=== PATIENT | female | born 1940 | race Caucasian/White ===

== ENCOUNTER 2019-04-28 02:55 | Day surgery (SDC) | payer MEDICARE, SELFPAY ==
[2019-04-22 12:38] VITALS: BMI 31.0
--- NOTE | 2019-04-27 17:14 | WPDANESEPP ---
Anes - Eval Pre Procedure Procedure: Operation Date: 04/28/19 08:00 Proposed Procedures p Colonoscopy - Wilder Santillan MD Date/Time: 04/27/19 17:14 Pre Op Diagnosis: Change In Bowel Habits Patient Data Age: 78 Gender: F Height: 5 ft 2 in Weight: 77 kg Allergies Allergy/AdvReac Type Severity Reaction Status Date / Time adhesive Allergy Mild RASH Verified 04/22/19 12:38 Penicillins Allergy Unknown Verified 04/22/19 12:38 Sulfa (Sulfonamide Allergy Unknown Verified 04/22/19 12:38 Antibiotics) Home Medications Medication Instructions Recorded Confirmed Type CoQ-10 04/22/19 History alprazolam 0.25 mg PO BID PRN 04/22/19 04/22/19 History amitriptyline 25 mg PO DAILY 04/22/19 04/22/19 History apixaban [Eliquis] 5 mg PO BID 04/22/19 04/22/19 History esomeprazole magnesium 40 mg PO DAILY 04/22/19 04/22/19 History levothyroxine 50 mcg PO DAILY 04/22/19 04/22/19 History trospium 20 mg PO BID 04/22/19 04/22/19 History Patient hx anesthesia problems: post op nausea/vomiting Family hx anesthesia problems: none PMFSH Past Medical History Medical History Anxiety Arthritis Cervical vertebral fusion Constipation DVT (deep venous thrombosis) Hypothyroidism Social History Social History Smoking status: Never smoker Exam Day of Procedure 04/27/19 17:14
[2019-04-28] MEDS: LACTATED RINGERS 1,000 ML 150 ML IV CONT (06:55)
[2019-04-28 07:01] VITALS: BP 179/91; PULSE 99; RESP 16; TEMP 36.4; O2SAT 98
--- NOTE | 2019-04-28 07:23 | WPDANESEPPF ---
Anes - Initial Pre Proc Eval Procedure: Operation Date: 04/28/19 08:00 Proposed Procedures p Colonoscopy - Wilder Santillan MD Date/Time: 04/28/19 07:23 Surgeon: Wilder Santillan MD Pre Op Diagnosis: Change In Bowel Habits Patient Data Age: 78 Gender: F Height: 1.57 m Weight: 76.1 kg Last Vital Signs Temp 36.4 C 04/28/19 07:01 Pulse 99 04/28/19 07:01 Resp 16 04/28/19 07:01 BP 179/91 H 04/28/19 07:01 Pulse Ox 98 04/28/19 07:01 Allergies Allergy/AdvReac Type Severity Reaction Status Date / Time adhesive Allergy Mild RASH Verified 04/28/19 07:00 Penicillins Allergy Unknown Verified 04/28/19 07:00 Sulfa (Sulfonamide Allergy Unknown Verified 04/28/19 07:00 Antibiotics) Home Medications Medication Instructions Recorded Confirmed Type CoQ-10 04/22/19 History alprazolam 0.25 mg PO BID PRN 04/22/19 04/22/19 History amitriptyline 25 mg PO DAILY 04/22/19 04/22/19 History apixaban [Eliquis] 5 mg PO BID 04/22/19 04/22/19 History esomeprazole magnesium 40 mg PO DAILY 04/22/19 04/22/19 History levothyroxine 50 mcg PO DAILY 04/22/19 04/22/19 History trospium 20 mg PO BID 04/22/19 04/22/19 History Patient hx anesthesia problems: post op nausea/vomiting Family hx anesthesia problems: none PMFSH Past Medical History Medical History (Updated 04/28/19 @ 07:24 by Derrek Arango MD) Anxiety Arthritis Cervical vertebral fusion Constipation DVT (deep venous thrombosis) Hypothyroidism Obesity Social History Social History Smoking status: Never smoker Anes - Eval Final PreProcedure Day of Procedure 04/28/19 07:23 Patient weight: obese Heart: regular rate and rhythm Lungs: clear to auscultation and normal air movement Airway: Mallampati scale class II Neurological: alert and oriented Last oral intake: >/= 8 hours ASA classification: III Emergent: no Anesthetic plan: proceed Anesthesia type and monitoring: general GIVS Informed Consent: The patient's anesthetic plan and its attendant risks and benefits were discussed with the patient/family/POA. Questions were solicited and answers provided to the satisfaction of the patient/family/POA.
[2019-04-28] MEDS: ONDANSETRON INJ 4 MG/2 ML VIAL IV PUSH (07:32)
--- NOTE | 2019-04-28 07:58 | WPDGICN ---
Assessment and Plan Additional Plan This is a 78-year-old white female patient seen in evaluation at the request of Dr. Zamarripa. Patient has complaints of change in bowel habits. She has had increasing constipation since February of 2019. She was treated empirically for diverticulitis by primary care service. No change in bowel habits was identified. She denies any bleeding. She denies any weight loss. Current medications include FiberCon, [place] Mary, MiraLax. Prunes. Family history is noncontributory. Past medical history is significant for a history of DVT. She is on chronic Eliquis anticoagulation. Current medications include Eliquis now on hold. Synthroid. Nexium. Alprazolam. Flonase. Zyrtec. Probiotics. Amitriptyline. His allergy to penicillin and sulfa. Physical exam reveals her to be alert. Vital signs stable. HEENT exam unremarkable. Lungs are clear to auscultation and percussion. Heart is without murmur or extra sounds. Abdominal exam bowel sounds are present soft nontender with no hepatosplenomegaly. Digital external rectal exam normal. Impression 1. Change in bowel habits. 2. Constipation. 3. Eliquis anticoagulation. 4. History of DVT. Plan is to continue MiraLax daily. Magnesium citrate may be of some benefit intermittently for severe constipation. Colonoscopy will be arranged to further exclude colon disease. Further recommendations will be given after endoscopy. GI Consult Note Consult date/time: 04/28/19 07:58 HPI: Marilyn Plascencia is a 78 year old female [facility] Past Medical History Medical History (Updated 04/28/19 @ 07:24 by Derrek Arango MD) Anxiety Arthritis Cervical vertebral fusion Constipation DVT (deep venous thrombosis) Hypothyroidism Obesity Social History Social History Smoking status: Never smoker Meds Home Medications and Allergies Home Medications Medication Instructions Recorded Confirmed Type CoQ-10 04/22/19 History alprazolam 0.25 mg PO BID PRN 04/22/19 04/22/19 History amitriptyline 25 mg PO DAILY 04/22/19 04/22/19 History apixaban [Eliquis] 5 mg PO BID 04/22/19 04/22/19 History esomeprazole magnesium 40 mg PO DAILY 04/22/19 04/22/19 History levothyroxine 50 mcg PO DAILY 04/22/19 04/22/19 History trospium 20 mg PO BID 04/22/19 04/22/19 History Allergies Allergy/AdvReac Type Severity Reaction Status Date / Time adhesive Allergy Mild RASH Verified 04/28/19 07:00 Penicillins Allergy Unknown Verified 04/28/19 07:00 Sulfa (Sulfonamide Allergy Unknown Verified 04/28/19 07:00 Antibiotics) Vital Signs Vital Signs - 24 hr 04/28/19 07:01 Temperature 36.4 C Pulse Rate 99 Respiratory Rate 16 Blood Pressure 179/91 H Pulse Oximetry 98
[2019-04-28 08:25] VITALS: BP 113/71; PULSE 90; RESP 19; O2SAT 96
[2019-04-28 08:35] VITALS: BP 139/79; PULSE 81; RESP 23; O2SAT 96
[2019-04-28 08:47] VITALS: BP 159/94; PULSE 82; RESP 23; O2SAT 97
== END 2019-04-28 08:58 | disposition home or self-care (01) ==
PROVIDERS: PCP Family Medicine; Visit Provider Internal Medicine Gastroenterology
PROC: 0DJD8ZZ Inspection of Lower Intestinal Tract, Via Natural or Artificial Opening Endoscopic (ICD-10-PCS; CPT 45378; principal; 2019-04-28 08:00)
DX: Z12.11 Encounter for screening for malignant neoplasm of colon (principal); K59.00 Constipation, unspecified; D12.2 Benign neoplasm of ascending colon; K57.30 Diverticulosis of large intestine without perforation or abscess without bleeding; K64.8 Other hemorrhoids; E03.9 Hypothyroidism, unspecified; F41.9 Anxiety disorder, unspecified; M19.90 Unspecified osteoarthritis, unspecified site; Z86.718 Personal history of other venous thrombosis and embolism; Z79.01 Long term (current) use of anticoagulants; Z98.1 Arthrodesis status; E66.9 Obesity, unspecified; Z68.30 Body mass index [BMI] 30.0-30.9, adult
CPT/HCPCS: 45385; 88305; J2001; J2405; J2704; J7120

== ENCOUNTER 2019-06-14 13:24 | Outpatient (CLI) | payer MEDICARE, SELFPAY ==
--- NOTE | ~2019-06-14 | CT_ITS ---
EXAMINATION: CT abdomen pelvis wo/w con DATE: 06/14/2019 14:46 INDICATION: Microscopic hematuria TECHNIQUE: Computed tomography (CT) of the abdomen and pelvis was performed without and with 130 cc O mnipaque 350 intravenous contrast. The dose-length product was 1532.84 mGy-cm. Automated exposure con trol and iterative reconstruction technique were employed. COMPARISON: CT dated 04/21/2018 FINDINGS: Lung bases are unremarkable. Cardiomegaly. No significant pleural or pericardial effusion. Colonic diverticulosis without evidence for diverticulosis. No lymphadenopathy. There are punctate 1- 2 mm nonobstructing lower pole right renal stones. There are renal cysts, largest in the right kidney measuring 2.1 cm. Gallbladder is present. No free air or free fluid. No abnormal pelvic masses or fl uid collections. Uterus is surgically absent. Colonic diverticulosis without evidence for diverticuli tis. IMPRESSION: 1. Punctate nonobstructing right nephrolithiasis. Reviewed, dictated and finalized at location A.
--- NOTE | ~2019-06-14 | XR_ITS ---
XR abdomen/kub 1V 06/14/2019 14:13 Indication: Microhematuria Procedure: KUB Comparison: 04/21/2018 Findings: Bowel gas pattern is nonobstructive. There are radiodensities in the left upper abdomen, po ssibly bowel content. Possible punctate stones in the lower pole of the right kidney. Mild lumbar spo ndylosis with dextroscoliosis. No acute osseous abnormality. Impression: 1: Possible punctate right nephrolithiasis. Reviewed, dictated and finalized at location A. Impression: 1: Possible punctate right nephrolithiasis.
[2019-06-14 14:22] LABS: Estimated Glomerular Filt Rate > 60
== END 2019-06-14 13:25 | disposition home or self-care (01) ==
PROVIDERS: PCP Family Medicine; Visit Provider Nurse Practitioner Adult Health
DX: R31.29 Other microscopic hematuria (principal); N20.0 Calculus of kidney
CPT/HCPCS: 36415; 74018; 74178; Q9967

== ENCOUNTER 2019-10-14 07:21 | Outpatient (CLI) | payer MEDICARE, SELFPAY ==
--- NOTE | ~2019-10-14 | US_ITS ---
US venous doppler [facility] DATE: 10/14/2019 08:17 INDICATION: Chronic deep venous thrombosis, on Eliquis therapy TECHNIQUE: Real-time and color flow imaging and Doppler analysis of the veins of the lower extremitie s COMPARISON: 07/28/2018 venous duplex examination of the lower extremities FINDINGS: The right greater saphenous vein is patent. There is spontaneous and phasic flow of the rig ht common femoral and deep femoral veins. There is thrombus identified within the right femoral vein with incomplete compression proximal and m id right femoral vein. There is occlusion of the distal femoral vein by thrombus, with no compression . There is incomplete compression of the distal popliteal vein on the right. Thrombus is identified within one of the paired right peroneal veins. The posterior tibial veins are patent on the right. The left greater saphenous vein is patent. There is chronic partial thrombosis of the left popliteal vein distally with incomplete compression, as noted on the 07/28/2018 venous duplex examination of the lower extremities. Since. Otherwise the becca p veins of the left lower extremity are patent, with spontaneous flow and normal augmentation and col or flow signal, normal compression. 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 Reviewed, dictated and finalized at location B. 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
== END 2019-10-14 07:22 | disposition home or self-care (01) ==
LOC: ANHIMG 07:25
PROVIDERS: PCP Family Medicine; Visit Provider Family Medicine
DX: I82.503 Chronic embolism and thrombosis of unspecified deep veins of lower extremity, bilateral (principal); I82.411 Acute embolism and thrombosis of right femoral vein; I82.431 Acute embolism and thrombosis of right popliteal vein
CPT/HCPCS: 93970

== ENCOUNTER 2019-11-26 16:05 | Outpatient (CLI) | payer MEDICARE, SELFPAY | END 2019-11-26 16:06 | disposition home or self-care (01) | PROVIDERS: PCP Family Medicine; Visit Provider Family Medicine | DX: A23.9 Brucellosis, unspecified (principal) | CPT/HCPCS: 36415; 86622 ==

== ENCOUNTER → 2019-12-10 11:32 | Outpatient (CLI) | payer MEDICARE, SELFPAY ==
--- NOTE | ~2019-12-10 | MM_ITS ---
EXAMINATION: MM screening arturo BI w jonas HISTORY: Screening mammogram TECHNIQUE: Craniocaudal and mediolateral oblique 3-D tomosynthesis images were obtained and synthetic 2-D images were generated. CAD analysis was submitted and interpreted. COMPARISON: 08/14/2018, 08/07/2017, 07/24/2016 bilateral digital screening mammogram examinations BREAST PARENCHYMAL COMPOSITION: The breasts are almost entirely fatty. FINDINGS: There is no evidence of suspicious mass, calcification, or architectural distortion to sugg est malignancy in either breast. There has been no suspicious interval change. IMPRESSION: 1. No mammographic evidence of malignancy. 2. Recommend routine screening mammography in one year. BI-RADS Category 1: Negative Reviewed, dictated and finalized at location A.
== END ==
PROVIDERS: PCP Family Medicine; Visit Provider Nurse Practitioner Obstetrics & Gynecology
DX: Z12.31 Encounter for screening mammogram for malignant neoplasm of breast (principal)
CPT/HCPCS: 77063; 77067

== ENCOUNTER 2019-12-21 09:30 | Emergency (ER) | payer MEDICARE, SELFPAY ==
[2019-12-21] VITALS (9 sets, daily range): BP systolic 132–175; BP diastolic 73–95; PULSE 66–81; RESP 14–21; TEMP 36.1; O2SAT 96–99
--- NOTE | ~2019-12-21 | XR_ITS ---
EXAMINATION: XR chest 2V EXAM DATE: 12/21/2019 10:12 INDICATION: Chest heaviness, started after taking the medication. TECHNIQUE: Frontal and lateral projections of the chest obtained and reviewed. Comparison is made to prior examination from 07/11/2014. FINDINGS: The lungs are clear. There are no pleural effusions. The cardiomediastinal silhouette is within normal limits. There is no pneumothorax suspected. The bones and soft tissues are unremarkab le. IMPRESSION: No acute cardiopulmonary findings. Reviewed, dictated and finalized at location A.
--- NOTE | 2019-12-21 09:48 | ECG_ITS ---
Measurements Intervals [place] Rate: 80 P: 15 IA: 156 QRS: -13 QRSD: 105 T: -16 QT: 289 QTc: 334 Interpretive Statements SINUS RHYTHM DELAYED PRECORDIAL R/S TRANSITION VOLTAGE CRITERIA FOR LVH INFERIOR INFARCT, AGE INDETERMINATE BASELINE ARTIFACT- I, II, III, AVR ABNORMAL ECG Electronically Signed On 12-21-2019 10:31:33 CDT by Kamlesh Yap D.O.
[2019-12-21 10:39] LABS: Basophils Absolute Auto 0.1 K/mm3 (0.0-0.1); Basophils Percent Auto 0.8 % (0.2-1.2); Eosinophils Absolute Auto 0.1 K/mm3 (0-0.3); Eosinophils Percent Auto 1.9 % (0-4.4); Hematocrit 44.5 % (37.0-47.0); Immature Granulocyte Absolute 0.01 K/mm3 (0.00-0.031); Immature Granulocyte Percent A 0.1 % (0-0.5); Lymphocytes Absolute Auto 3.28 K/mm3 (0.9-3.2); Lymphocytes Percent Auto 43.4 % (18.3-44.2); Mean Corpuscular HGB Conc 33.7 g/dl (32-36); Mean Corpuscular Hemoglobin 31.1 pg (26-34); Mean Corpuscular Volume 92.1 fl (80-100); Mean Platelet Volume 11.7 fl (7.4-10.4); Monocytes Absolute Auto 0.7 K/mm3 (0.1-0.6); Monocytes Percent Auto 9.5 % (2.6-8.5); Neutrophils Absolute Auto 3.4 K/mm3 (1.3-6.7); Neutrophils Percent Auto 44.3 % (45.5-73.1); Platelet Count Result 157 k/mm3 (150-375); Red Blood Count 4.83 M/mm3 (4.2-5.4); Red Cell Distribution Width 12.4 % (11.5-14.5); White Blood Count 7.6 K/mm3 (4.5-10.0)
[2019-12-21 10:48] LABS: INR 1.2; Prothrombin Time 14.4 Seconds (11.1-14.7)
[2019-12-21 10:49] LABS: Partial Thromboplastin Time 30.6 SECONDS (22.3-36.8)
--- NOTE | 2019-12-21 10:58 | PC.NURSE ---
Trop baseline unreceived at 10:50, redrawn at 10:55 and sent to lab
[2019-12-21 11:17] LABS: Anion Gap 7 mmol/L (8-16); Blood Urea Nitrogen 13 mg/dL (7-17); Calcium 9.2 mg/dL (8.4-10.2); Carbon Dioxide 31 mmol/L (22-30); Chloride 106 mmol/L (98-107); Estimated CRCL calculation 47 ml/min; Estimated Glomerular Filt Rate > 60; Glucose 99 mg/dL (65-105); Sodium 144 mmol/L (137-145)
[2019-12-21 11:28] LABS: Troponin I < 0.012 ng/mL (0.000-0.034)
--- NOTE | 2019-12-21 11:54 | ED.GENADULT ---
HPI - General Adult General Chief complaint: Chest Pain Stated complaint: allergic reaction Time Seen by Provider: 12/21/19 10:03 Source: patient and family Mode of arrival: ambulatory Limitations: no limitations History of Present Illness HPI narrative: Patient is a 79-year-old female who presents with chest heaviness that began last night at 11 and resolved after going to sleep patient notes that it began a few hours after taking an antibiotic she was prescribed for urinary tract infection patient took 1 pill and experienced onset of symptoms patient on arrival notes no current chest pain discomfort. Patient denies similar occurrence in the past Related Data Home Medications Medication Instructions Recorded Confirmed CoQ-10 04/22/19 alprazolam 0.25 mg PO BID PRN 04/22/19 04/22/19 apixaban [Eliquis] 5 mg PO BID 04/22/19 04/22/19 esomeprazole magnesium 40 mg PO DAILY 04/22/19 04/22/19 levothyroxine 50 mcg PO DAILY 04/22/19 04/22/19 Acidophilus 12/21/19 Caltrate 600 plus D 12/21/19 Centrum Silver 12/21/19 Metamucil 12/21/19 Miralax 12/21/19 Ocuvite with Lutein 12/21/19 Probiotic 12/21/19 Refresh Tears 12/21/19 Vitamin C 12/21/19 Zyrtec 12/21/19 biotin 12/21/19 choline bitartrate 12/21/19 magnesium 12/21/19 solifenacin [Vesicare] mg PO 12/21/19 Allergies Allergy/AdvReac Type Severity Reaction Status Date / Time adhesive Allergy Mild RASH Verified 12/21/19 09:52 Penicillins Allergy Unknown Rash Verified 12/21/19 09:52 Sulfa (Sulfonamide Allergy Unknown Rash Verified 12/21/19 09:52 Antibiotics) Review of Systems Review of Systems: All systems reviewed & are unremarkable except as noted in HPI and below PMFSH Past Medical History Medical History Anxiety Arthritis Cervical vertebral fusion Constipation DVT (deep venous thrombosis) Hypothyroidism Obesity Social History Social History Smoking status: Never smoker Gender identity (if verbalized by the patient): Female Exam Narrative: Exam Narrative: GENERAL: Well-appearing, well-nourished, and in no acute distress. HEAD: Normocephalic, atraumatic. EYES: PERRLA and EOMI. ENT: Nares clear, no rhinorrhea or epistaxis. Mucous membranes moist. CHEST: Clear to auscultation. No respiratory distress. No wheezes rales or rhonchi HEART: Regular rate and rhythm. No murmur heard. Normal peripheral pulses. ABDOMEN: Soft, nontender, nondistended, normal active bowel sounds. EXTREMITIES: Normal range of motion. No edema. SKIN: Warm, dry, no rash. NEURO: No focal deficits. Alert and oriented x3. PSYCH: Normal mood and affect. Course Course Emergency Course: Patient in the room in no distress resting comfortably no high risk changes in the blood work or imaging patient will follow with primary care and is felt appropriate for outpatient reevaluation Consultations Consultation #1: Spoke with urology practitioner who is aware of this patient recommends the patient continues the current urinary antibiotics given the cultures and that the reaction was not serious in nature if it were a reaction at all to the antibiotics Date: 12/21/19 Time: 15:19 Vital Signs Vital signs: Vital Signs Temperature 97 F L 12/21/19 09:42 Pulse Rate 80 12/21/19 09:42 Respiratory Rate 17 12/21/19 09:42 Blood Pressure 175/95 H 12/21/19 09:42 Pulse Oximetry 98 12/21/19 09:42 Temperature 97 F L 12/21/19 09:42 Pulse Rate 67 12/21/19 13:48 Respiratory Rate 21 H 12/21/19 13:48 Blood Pressure 143/73 H 12/21/19 13:48 Pulse Oximetry 98 12/21/19 13:48 Medical Decision Making MDM Narrative Medical decision making narrative: Patients EKGs and labs are without significant high risk changes. Cardiac risk factors were reviewed. Patient is felt likely to be low risk for ACS and reasonable for further risk stratification testi
[2019-12-21 12:00] LABS: Add Urine Microscopic? YES; Appearance Urine Clear (Clear); Bilirubin Urine Negative (Negative); Blood Urine Negative (Negative); Color Urine Yellow (Yellow); Glucose Urine UA Negative (Negative); Ketones Urine Negative (Negative); Leukocyte Esterase Ur Trace LEU/UL (Negative); Mucus Urine Rare /lpf; Nitrate Urine Negative (Negative); Protein Urine Negative (Negative); RBC Urine 0-2 /hpf (0-2); Squamous Epithelial Cell Urine Rare /hpf (Few); Transitional Epi Cells Urine Rare /hpf (None Seen); Urobilinogen Urine Negative mg/dL (<2.0)
--- NOTE | 2019-12-21 13:10 | PC.NURSE ---
Per DUSTY Perez- no dose of Aspiring needed at this time. Medication held per VORB
[2019-12-21 14:41] LABS: Troponin I < 0.012 ng/mL (0.000-0.034)
== END 2019-12-21 15:45 | disposition home or self-care (01) ==
PROVIDERS: Emergency Medicine Emergency Medical Services; Emergency Provider Emergency Medicine; PCP Family Medicine
DX: R07.89 Other chest pain (principal); N39.0 Urinary tract infection, site not specified; F41.9 Anxiety disorder, unspecified; M19.90 Unspecified osteoarthritis, unspecified site; Z86.718 Personal history of other venous thrombosis and embolism; E03.9 Hypothyroidism, unspecified; E66.9 Obesity, unspecified; Z68.30 Body mass index [BMI] 30.0-30.9, adult; R94.31 Abnormal electrocardiogram [ECG] [EKG]
CPT/HCPCS: 36415; 71046; 80048; 81001; 84484; 85025; 85610; 85730; 93005; 99284

== ENCOUNTER 2020-05-06 09:08 | Outpatient (CLI) | payer MEDICARE, SELFPAY ==
--- NOTE | ~2020-05-06 | CT_ITS ---
EXAMINATION: CT abdomen pelvis wo con DATE: 05/06/2020 09:35 INDICATION: Renal stone TECHNIQUE: Computed tomography (CT) of the abdomen and pelvis was performed without intravenous contr ast. Automated exposure control and iterative reconstruction technique were employed. The dose-length product was 480.77 mGy-cm. COMPARISON: None FINDINGS: Mild scattered atelectasis in the bilateral lower lung zones. Heart size is normal. No pericardial or pleural effusion. Liver, gallbladder, spleen, pancreas and bilateral adrenal glands are normal. 2.1 cm right renal cyst. A few tiny bilateral calcified renal stones, one measuring 1 mm in the mid left kidney and 4 in the lower pole of the right kidney the largest measuring 2 mm. No stones seen along t he course of the left ureter. 3 mm nonobstructing stone at the right ureterovesicular junction with n o hydroureteronephrosis. Several unchanged phleboliths in the pelvis. Bladder is normal. There is mod erate colonic diverticulosis with a sigmoid predominance. There is no adjacent inflammatory change t o suggest diverticulitis. Small bowel and appendix are normal. No free intraperitoneal gas or fluid. No pathologically enlarged abdominal or pelvic lymphadenopathy. Mild thoracolumbar dextrocurvature wi th mild spondylosis. Severe spondylosis at the lumbosacral junction. 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 Bone island at the left femoral head. IMPRESSION: 1. Bilateral nephrolithiasis with 3 mm nonobstructing stone at the right ureterovesicular junction. 2. Moderate diverticulosis. Reviewed, dictated and finalized at location A. HOUSE PROCESSOR IMPRESSION: 1. Bilateral nephrolithiasis with 3 mm nonobstructing stone at the right ureter ovesicular junction. 2. Moderate diverticulosis.
--- NOTE | ~2020-05-06 | XR_ITS ---
XR abdomen/kub 1V DATE: 05/06/2020 09:36 INDICATION: Renal stone TECHNIQUE: AP view COMPARISON: 05/06/[address] abdomen pelvis FINDINGS: There are two subtle small lower pole right renal calcified calculi. No bowel obstruction is detected. The psoas shadows are intact. No visceromegaly is detected. IMPRESSIONS: Nonobstructing lower pole right renal small calcified calculi Reviewed, dictated and finalized at Location A. Reviewed, dictated and finalized at location A. RUNNER IMPRESSIONS: Nonobstructing lower pole right renal small calcified calculi
== END 2020-05-06 09:09 | disposition home or self-care (01) ==
PROVIDERS: PCP Family Medicine; Visit Provider Nurse Practitioner Adult Health
DX: N20.0 Calculus of kidney (principal); K57.90 Diverticulosis of intestine, part unspecified, without perforation or abscess without bleeding
CPT/HCPCS: 74018; 74176

== ENCOUNTER 2020-07-03 12:42 | Emergency (ER) | payer MEDICARE, SELFPAY ==
--- NOTE | ~2020-07-03 | US_ITS ---
EXAMINATION: US venous doppler [facility] EXAM DATE: 07/03/2020 13:47 INDICATION: left calf pain, hx chronic DVT. TECHNIQUE: Multiple grayscale, color flow and Doppler images of the lower extremity deep venous syste ms bilaterally were obtained and reviewed. Comparison is made to prior examination from 10/14/2019. FINDINGS: Right side: The right common femoral, femoral and profunda veins demonstrate normal color flow, respi ratory variation, augmentation and compressibility. Compressibility, color flow confirmed within the right popliteal, posterior tibial, peroneal, and greater saphenous veins. Left side: The left common femoral, femoral and profunda veins demonstrate normal color flow, respira tory variation, augmentation and compressibility. Compressibility, color flow confirmed within the l eft popliteal, posterior tibial, peroneal, and greater saphenous veins. IMPRESSION: Resolution of previously seen bilateral DVT. Normal exam. Reviewed, dictated and finalized at location A.
[2020-07-03 12:58] VITALS: BP 119/80; PULSE 88; RESP 16; TEMP 36.4; O2SAT 100
--- NOTE | 2020-07-03 13:13 | ED.LOWEXIN ---
HPI - Extremity Injury (Lower) General Chief Complaint: Extremity Problem,Nontraumatic Stated Complaint: left leg pain/hx dvt Time Seen by Provider: 07/03/20 13:07 Source: patient Mode of arrival: ambulatory Limitations: no limitations History of Present Illness HPI Narrative: This is a 79-year-old female that presents the emergency department for left calf pain today. No known injury or trauma. Patient has history of DVTs and is on Eliquis for this. Reports she has been taking her medication as prescribed. Reports worsening Pain today which prompted her to be seen. Denies fever, chest pain, shortness of breath. Related Data Home Medications Medication Instructions Recorded Confirmed CoQ-10 04/22/19 alprazolam 0.25 mg PO BID PRN 04/22/19 04/22/19 apixaban [Eliquis] 5 mg PO BID 04/22/19 04/22/19 esomeprazole magnesium 40 mg PO DAILY 04/22/19 04/22/19 levothyroxine 50 mcg PO DAILY 04/22/19 04/22/19 Acidophilus 12/21/19 Caltrate 600 plus D 12/21/19 Centrum Silver 12/21/19 Metamucil 12/21/19 Miralax 12/21/19 Ocuvite with Lutein 12/21/19 Probiotic 12/21/19 Refresh Tears 12/21/19 Vitamin C 12/21/19 Zyrtec 12/21/19 biotin 12/21/19 choline bitartrate 12/21/19 magnesium 12/21/19 solifenacin [Vesicare] mg PO 12/21/19 Allergies Allergy/AdvReac Type Severity Reaction Status Date / Time adhesive Allergy Mild RASH Verified 07/03/20 13:17 Penicillins Allergy Unknown Rash Verified 07/03/20 13:17 Sulfa (Sulfonamide Allergy Unknown Rash Verified 07/03/20 13:17 Antibiotics) Review of Systems Review of Systems: Narrative: CONSTITUTIONAL: Denies fever MUSCULOSKELETAL: Reports myalgia. NEUROLOGIC: Denies numbness All systems reviewed & are unremarkable except as noted in HPI and below PMFSH Past Medical History Medical History (Updated 07/03/20 @ 14:03 by Sujata Nelson PA-C) Anxiety Arthritis Cervical vertebral fusion Constipation DVT (deep venous thrombosis) Hypothyroidism Obesity Social History Social History Smoking status: Never smoker Gender identity (if verbalized by the patient): Female Exam Narrative: Exam Narrative: GENERAL: Well-appearing, well-nourished, and in no acute distress. HEAD: Normocephalic, atraumatic. EYES: EOMI. CHEST: Clear to auscultation. No respiratory distress. No wheezes rales or rhonchi HEART: Regular rate and rhythm. No murmur heard. Normal peripheral pulses. EXTREMITIES: Normal range of motion. No edema or erythema. Normal DP pulses SKIN: Warm, dry, no rash. NEURO: No focal deficits. Alert and oriented x3. PSYCH: Normal mood and affect Course Vital Signs Vital signs: Vital Signs Temperature 97.6 F 07/03/20 12:58 Pulse Rate 88 07/03/20 12:58 Respiratory Rate 16 07/03/20 12:58 Blood Pressure 119/80 07/03/20 12:58 Pulse Oximetry 100 07/03/20 12:58 Temperature 97.6 F 07/03/20 12:58 Pulse Rate 88 07/03/20 12:58 Respiratory Rate 16 07/03/20 12:58 Blood Pressure 119/80 07/03/20 12:58 Pulse Oximetry 100 07/03/20 12:58 MDM - Extremity Injury (Lower) MDM Narrative Medical decision making narrative: Patient presents the emergency department for left calf discomfort noted today. No known injury or trauma. She is afebrile and nontoxic-appearing. Denies any chest pain or shortness of breath. Has history of DVTs and was worried that she had another one. Bilateral lower extremity venous Doppler is without evidence of acute DVT. Does show resolution of previously seen bilateral DVTs. Patient instructed to continue her Eliquis as prescribed. [id number] pain medication as needed. She is to follow-up with her primary care doctor. She was given warnings to return to the ER Imaging Data Radiologist's impression: ITS Impressions Venous Doppler Study 07/03/20 13:48 IMPRESSION: Resolution of previously seen bilateral DVT. Normal exam.
--- NOTE | 2020-07-03 13:56 | PC.NURSE ---
Lab work no longer needed per DUSTY Patel.
[2020-07-03 14:14] VITALS: BP 120/74; PULSE 80; RESP 16; O2SAT 100
== END 2020-07-03 14:15 | disposition home or self-care (01) ==
PROVIDERS: Emergency Provider Emergency Medicine; PCP Family Medicine
DX: M79.662 Pain in left lower leg (principal); F41.9 Anxiety disorder, unspecified; M19.90 Unspecified osteoarthritis, unspecified site; E03.9 Hypothyroidism, unspecified; E66.9 Obesity, unspecified; Z68.27 Body mass index [BMI] 27.0-27.9, adult; Z86.718 Personal history of other venous thrombosis and embolism; Z79.01 Long term (current) use of anticoagulants
CPT/HCPCS: 93970; 99284

== ENCOUNTER → 2021-01-13 08:56 | Outpatient (CLI) | payer MEDICARE, SELFPAY ==
--- NOTE | ~2021-01-13 | DEXA_ITS ---
Bone Density Report Name: Marilyn Plascencia Age: 80 Sex: Female Ethnicity: White Date of : 1940 Indication: osteopenia; prior fracture; hysterectomy; postmnenopausal Referring Provider: Bill Adams Study: Bone densitometry was performed. Exam Date: January 13, 2021 Accession number: [id number] Bone Density: Region BMD T-score Z-score Classification AP Spine (L1-L4) 0.903 -1.3 1.4 Osteopenia Femoral Neck (Left) 0.665 -1.7 0.7 Osteopenia Total Hip (Left) 0.767 -1.4 0.6 Osteopenia Femoral Neck (Right) 0.662 -1.7 0.6 Osteopenia Total Hip (Right) 0.754 -1.5 0.5 Osteopenia Total Hip Mean 0.761 -1.5 0.6 Osteopenia World Health Organization criteria for BMD impression classify patients as: Normal (T-score at or above -1.0), Osteopenia (T-score between -1.0 and -2.5), or Osteoporosis (T-score at or below -2.5). 10-year Fracture Risk: FRAX not reported because: Prior hip or vertebral fracture Previous Exams: Region Exam Age BMD T-score BMD Change BMD Change Date g/cm2 vs Baseline vs Previous AP Spine(L1-L4) 01/13/2021 80 0.903 -1.3 0.052* 0.002 08/14/2018 77 0.902 -1.3 0.050* 0.035* 07/24/2016 75 0.867 -1.6 0.016 -0.050* 07/12/2014 73 0.917 -1.2 0.065* 0.008 04/08/2012 71 0.909 -1.3 0.057* 0.019 03/09/2010 69 0.890 -1.4 0.038* 0.029* 03/03/2009 68 0.861 -1.7 0.010 -0.017 03/02/2008 67 0.878 -1.5 0.027* 0.027* 09/20/2004 63 0.851 -1.8 Total Hip(Left) 01/13/2021 80 0.767 -1.4 -0.056* -0.017 08/14/2018 77 0.784 -1.3 -0.039* -0.065* 07/24/2016 75 0.849 -0.8 0.026 -0.003 07/12/2014 73 0.852 -0.7 0.029* 0.047* 04/08/2012 71 0.805 -1.1 -0.018 0.003 03/09/2010 69 0.802 -1.1 -0.021 0.015 03/03/2009 68 0.788 -1.3 -0.036* 0.003 03/02/2008 67 0.784 -1.3 -0.039* -0.039* 09/20/2004 63 0.824 -1.0 Total Hip(Right) 01/13/2021 80 0.754 -1.5 -0.046* -0.027 08/14/2018 77 0.781 -1.3 -0.020 -0.034* 07/24/2016 75 0.815 -1.0 0.014 -0.031* 07/12/2014 73 0.846 -0.8 0.046* 0.037* 04/08/2012 71 0.809 -1.1 0.009 -0.004 03/09/2010 69 0.813 -1.1 0.012 0.028* 03/03/2009 68 0.785 -1.3 -0.016 0.010 03/02/2008 67 0.775 -1.4 -0.026 -0.026 06
--- NOTE | ~2021-01-13 | MM_ITS ---
EXAMINATION: MM screening arturo BI w jonas HISTORY: Screening mammogram TECHNIQUE: Craniocaudal and mediolateral oblique 3-D tomosynthesis images were obtained and synthetic 2-D images were generated. CAD analysis was submitted and interpreted. COMPARISON: 12/10/2019, 08/10/2018, 08/07/2017 bilateral digital screening mammogram examinations BREAST PARENCHYMAL COMPOSITION: The breasts are almost entirely fatty. FINDINGS: There is no evidence of suspicious mass, calcification, or architectural distortion to sugg est malignancy in either breast. There has been no suspicious interval change. IMPRESSION: 1. No mammographic evidence of malignancy. 2. Recommend routine screening mammography in one year. BI-RADS Category 1: Negative Reviewed, dictated and finalized at location A.
== END ==
PROVIDERS: PCP Family Medicine; Visit Provider Obstetrics & Gynecology
DX: Z12.31 Encounter for screening mammogram for malignant neoplasm of breast (principal); Z78.0 Asymptomatic menopausal state; M85.89 Other specified disorders of bone density and structure, multiple sites
CPT/HCPCS: 77063; 77067; 77080

== ENCOUNTER 2021-04-02 17:12 | Emergency (ER) | payer MEDICARE, SELFPAY ==
[2021-04-02] VITALS (11 sets, daily range): BP systolic 118–151; BP diastolic 60–70; PULSE 60–82; RESP 15–20; TEMP 36.4–36.6; O2SAT 95–100
--- NOTE | ~2021-04-02 | XR_ITS ---
EXAMINATION: XR chest 2V DATE: 04/02/2021 17:49 INDICATION: Chest pain TECHNIQUE: PA and lateral views of the chest are obtained. COMPARISON: 09/20/2019 FINDINGS: The lungs are free of acute opacities. There is no pleural effusion or pneumothorax. The ca rdiomediastinal silhouette is normal. There is mild thoracic spondylosis. IMPRESSION: 1. No acute cardiopulmonary abnormality. Reviewed, dictated and finalized at location F. HODRAMATIST
--- NOTE | 2021-04-02 17:19 | ECG_ITS ---
Measurements Intervals [place] Rate: 74 P: 37 DE: 145 QRS: -2 QRSD: 108 T: -29 QT: 307 QTc: 341 Interpretive Statements SINUS RHYTHM DELAYED PRECORDIAL R/S TRANSITION LOW QRS VOLTAGE IN PRECORDIAL LEADS CONSIDER INFERIOR INFARCT, AGE INDETERMINATE BORDERLINE ST-T WAVE ABNORMALITY- ANTEROLAT/HIGH LAT LEADS BASELINE ARTIFACT- I, III, AVL, AVF, V6 ABNORMAL ECG Electronically Signed On 04-02-2021 20:03:48 AUTO RADIATOR SPECIALIST by Kamlesh Yap D.O.
[2021-04-02 18:58] LABS: Basophils Percent Auto 0.6 % (0.2-1.2); Eosinophils Absolute Auto 0.1 K/mm3 (0-0.3); Eosinophils Percent Auto 1.9 % (0-4.4); Hematocrit 38.6 % (37.0-47.0); Hemoglobin 12.9 g/dL (12.0-15.0); Immature Granulocyte Absolute 0.01 K/mm3 (0.00-0.031); Immature Granulocyte Percent A 0.1 % (0-0.5); Lymphocytes Absolute Auto 2.32 K/mm3 (0.9-3.2); Lymphocytes Percent Auto 34.7 % (18.3-44.2); Mean Corpuscular HGB Conc 33.4 g/dl (32-36); Mean Corpuscular Hemoglobin 31.3 pg (26-34); Mean Corpuscular Volume 93.7 fl (80-100); Mean Platelet Volume 10.5 fl (7.4-10.4); Monocytes Absolute Auto 0.8 K/mm3 (0.1-0.6); Monocytes Percent Auto 12.6 % (2.6-8.5); Neutrophils Absolute Auto 3.4 K/mm3 (1.3-6.7); Neutrophils Percent Auto 50.1 % (45.5-73.1); Platelet Count Result 169 k/mm3 (150-375); Red Blood Count 4.12 M/mm3 (4.2-5.4); Red Cell Distribution Width 12.2 % (11.5-14.5); White Blood Count 6.7 K/mm3 (4.5-10.0)
[2021-04-02 19:07] LABS: INR 1.3
[2021-04-02 19:08] LABS: Alanine Aminotransferase 31 U/L (4-35); Albumin Level 4.2 g/dL (3.5-5.1); Alkaline Phosphatase 72 U/L (38-126); Anion Gap 8 mmol/L (8-16); Aspartate Amino Transferase 37 U/L (14-36); Bilirubin,Total 0.5 mg/dL (0.2-1.3); Blood Urea Nitrogen 10 mg/dL (7-17); Carbon Dioxide 28 mmol/L (22-30); Chloride 102 mmol/L (98-107); Estimated CRCL calculation 39 ml/min; Estimated Glomerular Filt Rate > 60; Glucose 107 mg/dL (65-110); Lipase 59 U/L (23-300); Potassium 4.2 mmol/L (3.4-5.0); Sodium 138 mmol/L (137-145)
[2021-04-02 19:19] LABS: Troponin I < 0.012 ng/mL (0.000-0.034)
--- NOTE | 2021-04-02 20:02 | ED.CHESTPAIN ---
HPI - Chest Pain General Chief Complaint: Chest Pain <Charisma Britton MD - Last Filed: 04/02/21 21:23> Stated Complaint: chest pain <Charisma Britton MD - Last Filed: 04/02/21 21:23> Time Seen by Provider: 04/02/21 20:01 <Charisma Britton MD - Last Filed: 04/02/21 21:23> Source: patient <Charisma Britton MD - Last Filed: 04/02/21 21:23> Mode of arrival: ambulatory <Charisma Britton MD - Last Filed: 04/02/21 21:23> Limitations: no limitations <Charisma Britton MD - Last Filed: 04/02/21 21:23> History of Present Illness HPI narrative: The patient is an 80 yo female with a history of Hypothyroidism, DVT,on chronic anticoagulation with Eliquis, presenting for evaluation of chest pain. Pain in center of chest. Described as pressure, 8/10 in severity with radiation to the back. Patient with history of similar event a year ago, followed with Dr. Arriaga for that inpatient stay. Pt states she is taking Cipro for a UTI. She denies any other medication changes. Denies missed doses of anti coagulation. No nausea, vomiting or dyspnea. No exertional pain. Patient states pain began while she was watching television. Denies calf swelling or leg pain. She denies any dyspnea. No fever, chills or cough. No hemoptysis. <Charisma Britton MD - Last Filed: 04/02/21 21:23> Related Data Home Medications: Home Medications Medication Instructions Recorded Confirmed CoQ-10 04/22/19 alprazolam 0.25 mg PO BID PRN 04/22/19 04/22/19 apixaban [Eliquis] 5 mg PO BID 04/22/19 04/22/19 esomeprazole magnesium 40 mg PO DAILY 04/22/19 04/22/19 levothyroxine 50 mcg PO DAILY 04/22/19 04/22/19 Acidophilus 12/21/19 Caltrate 600 plus D 12/21/19 Centrum Silver 12/21/19 Metamucil 12/21/19 Miralax 12/21/19 Ocuvite with Lutein 12/21/19 Probiotic 12/21/19 Refresh Tears 12/21/19 Vitamin C 12/21/19 Zyrtec 12/21/19 biotin 12/21/19 choline bitartrate 12/21/19 magnesium 12/21/19 solifenacin [Vesicare] mg PO 12/21/19 <Charisma Britton MD - Last Filed: 04/02/21 21:23> Allergies/Adverse Reactions: Allergies Allergy/AdvReac Type Severity Reaction Status Date / Time adhesive Allergy Mild RASH Verified 04/02/21 20:27 Penicillins Allergy Unknown Rash Verified 04/02/21 20:27 Sulfa (Sulfonamide Allergy Unknown Rash Verified 04/02/21 20:27 Antibiotics) <Charisma Britton MD - Last Filed: 04/02/21 21:23> Review of Systems Review of Systems: CONSTITUTIONAL: Denies fever, chills, or sweats. EYES: Denies visual changes, redness, or discharge. ENT: Denies rhinorrhea, congestion, sore throat, or otalgia. CARDIOVASCULAR: Reporting chest pain without palpitations or edema RESPIRATORY: Denies cough or dyspnea. GASTROINTESTINAL: Denies abdominal pain, nausea, vomiting, or diarrhea. GENITOURINARY: Denies dysuria or hematuria. SKIN: Denies rash or itching. MUSCULOSKELETAL: Radiation of the pain to the upper back, denies other joint pain, or myalgia. NEUROLOGIC: Denies headache, numbness, or weakness. <Charisma Britton MD - Last Filed: 04/02/21 21:23> [facility] Past Medical History Medical History: Medical History (Updated 04/02/21 @ 21:36 by Juan Carlos Abbott MD) Anxiety Arthritis Cervical vertebral fusion Constipation DVT (deep venous thrombosis) Hypothyroidism Obesity <Charisma Britton MD - Last Filed: 04/02/21 21:23> Social History Social History: Social History Smoking status: Never smoker Gender identity (if verbalized by the patient): Female <Charisma Britton MD - Last Filed: 04/02/21 21:23> Exam Narrative: GENERAL: Awake, alert, conversant HEAD: Normocephalic, atraumatic. EYES: PERRLA and EOMI. ENT: Nares clear, no rhinorrhea or epistaxis. Mucous membranes moist. NECK: Supple. CHEST: No respiratory distress, breathing even and non labored, no chest wall tenderness HEART: Regular rate, si
[2021-04-02] MEDS: ASPIRIN 81 MG CHEWABLE TABLET 324 MG PO (20:34)
--- NOTE | 2021-04-02 20:53 | ECG_ITS ---
Measurements Intervals [place] Rate: 63 P: 34 [place]: 160 QRS: -9 QRSD: 114 T: 11 QT: 333 QTc: 342 Interpretive Statements SINUS RHYTHM DELAYED PRECORDIAL R/S TRANSITION BORDERLINE T WAVE ABNORMALITY- ANT/INF LEADS BASELINE ARTIFACT- I, II, III, AVR, AVL, AVF, V1-V6 BORDERLINE ECG Electronically Signed On 04-03-2021 6:01:16 MEND WORKER by Kamlesh Yap D.O.
[2021-04-02 21:08] LABS: D Dimer 0.27 ug/mL (<0.48); Troponin I < 0.012 ng/mL (0.000-0.034)
[2021-04-02 21:31] LABS: Add Urine Microscopic? YES; Appearance Urine Clear (Clear); Bacteria Urine Trace /hpf; Bilirubin Urine Negative (Negative); Blood Urine Negative (Negative); Color Urine Straw (Yellow); Glucose Urine UA Negative (Negative); Ketones Urine Negative (Negative); Leukocyte Esterase Ur 2+ LEU/UL (Negative); Mucus Urine Rare /lpf; Nitrate Urine Negative (Negative); Protein Urine Negative (Negative); Squamous Epithelial Cell Urine Rare /hpf (Few); Urobilinogen Urine Negative mg/dL (<2.0); WBC Urine 21-30 /hpf
[2021-04-02 21:33] LABS: Specific Grav Ur 1.003 (1.001-1.035)
== END 2021-04-02 22:06 | disposition home or self-care (01) ==
PROVIDERS: Emergency Medicine; Emergency Provider Emergency Medicine; PCP Family Medicine
DX: R07.89 Other chest pain (principal); N39.0 Urinary tract infection, site not specified; E03.9 Hypothyroidism, unspecified; M19.90 Unspecified osteoarthritis, unspecified site; F41.9 Anxiety disorder, unspecified; E66.9 Obesity, unspecified; Z68.24 Body mass index [BMI] 24.0-24.9, adult; Z86.718 Personal history of other venous thrombosis and embolism; Z79.01 Long term (current) use of anticoagulants; R94.31 Abnormal electrocardiogram [ECG] [EKG]
CPT/HCPCS: 36415; 71046; 80053; 81001; 83690; 84484; 85025; 85380; 85610; 85730; 87086; 93005; 99284; A9270

== ENCOUNTER 2021-04-09 15:27 | Outpatient (CLI) | payer MEDICARE, SELFPAY ==
--- NOTE | ~2021-04-09 | XR_ITS ---
EXAMINATION: XR abdomen/kub 1V DATE: 04/09/2021 15:51 INDICATION: Gross hematuria. Abdominal discomfort. TECHNIQUE: A supine view of the abdomen on 2 radiographs was obtained. COMPARISON: Abdomen radiograph 05/06/2020, CT abdomen and pelvis 04/09/2021 FINDINGS: There are no dilated loops of bowel. There is a small volume of stool in the colon. Right k idney is obscured by bowel. IMPRESSION: 1. No visible urolithiasis. Reviewed, dictated and finalized at location A. EN WORKER IMPRESSION: 1. No visible urolithiasis.
--- NOTE | ~2021-04-09 | CT_ITS ---
EXAMINATION: CT abdomen pelvis wo/w con DATE: 04/09/2021 16:17 INDICATION: Gross hematuria. TECHNIQUE: Computed tomography (CT) of the abdomen and pelvis was performed without and with intraven ous contrast using a total of 130 mL Omnipaque-350 intravenous contrast with a double-bolus technique for simultaneous opacification of the renal parenchyma and renal collecting system. Automated exposu re control and iterative reconstruction technique were employed. The dose-length product was 925.60 m Gy-cm. COMPARISON: CT abdomen and pelvis 05/06/2020 FINDINGS: The visualized portions of the lung bases demonstrate scarring in paraspinal right lower lobe. No ple ural effusion. The heart size is normal. There are coronary artery calcifications. No pericardial eff usion. The liver, spleen, gallbladder, pancreas, and adrenal glands are normal. There are cysts in th e kidneys measuring up to 2.4 cm on the right. There are approximately 4 stones in right kidney measu ring up to 2 mm. The ureters are not well opacified distally, but are normal. There is an 11 mm frond like mass at right posterior bladder wall. There are no pathologically enlarged lymph nodes. There is no free intraperitoneal fluid. There is severe lower lumbar spondylosis. IMPRESSION: 1. 11 mm frondlike mass at right posterior bladder wall suspicious for urothelial carcinoma. 2. Small nonobstructing right kidney stones. Reviewed, dictated and finalized at location A. FIXER IMPRESSION: 1. 11 mm frondlike mass at right posterior bladder wall suspicious for urotheli al carcinoma. 2. Small nonobstructing right kidney stones.
== END 2021-04-09 15:28 | disposition home or self-care (01) ==
LOC: ANHIMG 15:30
PROVIDERS: PCP Family Medicine; Visit Provider Nurse Practitioner Adult Health
DX: R31.0 Gross hematuria (principal); N20.0 Calculus of kidney; N32.89 Other specified disorders of bladder
CPT/HCPCS: 74018; 74178; Q9967

== ENCOUNTER 2021-07-09 14:05 | Outpatient (CLI) | payer MEDICARE, SELFPAY ==
--- NOTE | ~2021-07-09 | XR_ITS ---
EXAM: XR abdomen/kub 1V HISTORY: BACK PAIN RIGHT SIDE COMPARISON: None available FINDINGS: Lung bases clear. Normal bowel gas pattern. Punctate right lower pole calcifications are s table. Degenerative changes in the lumbar spine, including a large bridging osteophyte on the right b etween L1 and L2 and L5-S1 fusion. IMPRESSION: Stable right nephrolithiasis. Reviewed, dictated and finalized at location K.
== END 2021-07-09 14:06 | disposition home or self-care (01) ==
PROVIDERS: PCP Family Medicine; Visit Provider Family Medicine
DX: M54.9 Dorsalgia, unspecified (principal); N20.0 Calculus of kidney
CPT/HCPCS: 74018

== ENCOUNTER 2021-10-26 13:57 | Outpatient (CLI) | payer MEDICARE, SELFPAY ==
--- NOTE | ~2021-10-26 | CT_ITS ---
EXAMINATION: CT abdomen pelvis wo/w con DATE: 10/26/2021 14:41 INDICATION: Hematuria. Nausea. Low back pain. TECHNIQUE: Computed tomography (CT) of the abdomen and pelvis was performed without and with intraven ous contrast using a total of 130 mL Omnipaque-350 intravenous contrast with a double-bolus technique for simultaneous opacification of the renal parenchyma and renal collecting system. Automated exposu re control and iterative reconstruction technique were employed. The dose-length product was 627.50 m Gy-cm. COMPARISON: CT abdomen and pelvis 04/09/2021 FINDINGS: The visualized portions of the lung bases demonstrate mild atelectasis. There is mild scarring in par aspinal right lower lobe. No pleural effusion. The heart size is normal. There are coronary artery ca lcifications. No pericardial effusion. The liver, gallbladder, spleen, pancreas, and adrenal glands a re normal. There are cysts in the kidneys measuring up to 2.1 cm on the right. There are 4 stones in right kidney lower pole measuring up to 4 mm. There is a 3 mm stone in left kidney. The distal ureter s are not well opacified, but the ureters are normal. There are intraluminal filling defects in the b ladder, consistent with small volume of hematoma. There is a 7 mm stone in the bladder. There is dive rticulosis of the colon without evidence of diverticulitis. There are no dilated loops of bowel. The appendix is normal. There are no pathologically enlarged lymph nodes. There is no free intraperitonea l fluid. There is moderate lumbar spondylosis. IMPRESSION: 1. Small volume of hematoma in the bladder. 2. Stones in the kidneys and bladder. Reviewed, dictated and finalized at location A.
[2021-10-26 14:23] LABS: Estimated Glomerular Filt Rate > 60
== END 2021-10-26 13:58 | disposition home or self-care (01) ==
PROVIDERS: PCP Family Medicine; Visit Provider Physician Assistant
DX: M54.9 Dorsalgia, unspecified (principal); N20.0 Calculus of kidney; N32.89 Other specified disorders of bladder
CPT/HCPCS: 74178; Q9967

== ENCOUNTER → 2022-01-29 12:25 | Outpatient (CLI) | payer MEDICARE, SELFPAY ==
--- NOTE | ~2022-01-29 | MM_ITS ---
EXAMINATION: MM screening arturo BI w jonas HISTORY: Screening mammogram TECHNIQUE: Craniocaudal and mediolateral oblique 3-D tomosynthesis images were obtained and synthetic 2-D images were generated. CAD analysis was submitted and interpreted. COMPARISON: 01/13/2021, 12/10/2019, 08/10/2018 bilateral screening mammogram examinations BREAST PARENCHYMAL COMPOSITION: There are scattered areas of fibroglandular density. FINDINGS: There is no evidence of suspicious mass, calcification, or architectural distortion to sugg est malignancy in either breast. There has been no suspicious interval change. IMPRESSION: 1. No mammographic evidence of malignancy. 2. Recommend routine screening mammography in one year. BI-RADS Category 1: Negative Reviewed, dictated and finalized at location A. FACTURING TECHNOLOGIST
== END ==
PROVIDERS: PCP Family Medicine; Visit Provider Nurse Practitioner Obstetrics & Gynecology
DX: Z12.31 Encounter for screening mammogram for malignant neoplasm of breast (principal)
CPT/HCPCS: 77063; 77067

== ENCOUNTER 2022-04-30 11:33 | Outpatient (CLI) | payer MEDICARE, SELFPAY ==
--- NOTE | ~2022-04-30 | XR_ITS ---
Supine and upright views of the abdomen Clinical history: Kidney stone COMPARISON: 07/09/2021 Findings: Bowel gas pattern is nonspecific. No evidence for obstruction or free air. Probable bilater al nephrolithiasis, unchanged from prior exam. Osseous structures are intact. Impression: Probable bilateral kidney stones, unchanged. Reviewed, dictated and finalized at [facility]. AR WORKER Impression: Probable bilateral kidney stones, unchanged.
== END 2022-04-30 11:34 | disposition home or self-care (01) ==
PROVIDERS: PCP Physician Assistant; Visit Provider Internal Medicine Nephrology
DX: N20.0 Calculus of kidney (principal)
CPT/HCPCS: 74018

== ENCOUNTER 2022-06-20 09:52 | Outpatient (CLI) | payer MEDICARE, SELFPAY ==
[2022-06-20 11:02] LABS: Hematocrit 36.3 % (37.0-47.0); Hemoglobin 11.8 g/dL (12.0-15.0); Mean Corpuscular HGB Conc 32.5 g/dl (32-36); Mean Corpuscular Hemoglobin 30.6 pg (26-34); Mean Platelet Volume 11.7 fl (7.4-10.4); Platelet Count Result 155 k/mm3 (150-375); Red Blood Count 3.86 M/mm3 (4.2-5.4); White Blood Count 6.7 K/mm3 (4.5-10.0)
[2022-06-20 11:16] LABS: Alanine Aminotransferase 20 U/L (6-35); Albumin Level 3.8 g/dL (3.5-5.1); Alkaline Phosphatase 61 U/L (38-126); Anion Gap 7 mmol/L (8-16); Aspartate Amino Transferase 26 U/L (14-36); Bilirubin,Total 0.7 mg/dL (0.2-1.3); Blood Urea Nitrogen 17 mg/dL (7-17); Calcium 8.9 mg/dL (8.4-10.2); Carbon Dioxide 29 mmol/L (22-30); Chloride 104 mmol/L (98-107); Estimated Glomerular Filt Rate > 60; Glucose 132 mg/dL (65-110); Potassium 3.9 mmol/L (3.4-5.0); Sodium 140 mmol/L (137-145)
[2022-06-20 13:37] LABS: Toxigenic C. Diff POSITIVE (NEGATIVE)
[2022-06-27 19:57] LABS: Calprotectin, Stool 97 mcg/g
== END 2022-06-20 09:53 | disposition home or self-care (01) ==
PROVIDERS: PCP Family Medicine; Visit Provider Nurse Practitioner
DX: R19.8 Other specified symptoms and signs involving the digestive system and abdomen (principal); R11.0 Nausea; K21.9 Gastro-esophageal reflux disease without esophagitis; R19.7 Diarrhea, unspecified
CPT/HCPCS: 36415; 80053; 83993; 85027; 87045; 87269; 87427; 87493

== ENCOUNTER 2022-07-02 10:44 | Outpatient (CLI) | payer MEDICARE, SELFPAY ==
[2022-07-02 12:59] LABS: Toxigenic C. Diff POSITIVE (NEGATIVE)
== END 2022-07-02 10:45 | disposition home or self-care (01) ==
LOC: ANHLAB 10:45
PROVIDERS: PCP Family Medicine; Visit Provider Nurse Practitioner Family
DX: A04.72 Enterocolitis due to Clostridium difficile, not specified as recurrent (principal)
CPT/HCPCS: 87493

== ENCOUNTER 2022-07-24 10:29 | Outpatient (CLI) | payer MEDICARE, SELFPAY ==
--- NOTE | ~2022-07-24 | CT_ITS ---
CT of the Abdomen and Pelvis: Indication: Abdominal pain Technique: 2.5 mm axial scans were obtained through the abdomen and pelvis following intravenous adm inistration of 100 cc of Omnipaque 350. Dose reduction technique was used on this scan by utilizing a utomated exposure control and iterative reconstruction technique. The dose-length product (DLP) was 2 70.36 mGy-cm. COMPARISON: 10/26/2021 Findings: Scans through the lung bases are unremarkable. The liver, spleen, pancreas, gallbladder, adrenals and left kidney are within normal limits. Small no nobstructing right renal stone. No evidence of aortic aneurysm. No lymphadenopathy. No bowel obstruction or bowel wall thickening. Extensive sigmoid/colonic diverticulosis is present. Images through the pelvis were performed. Small urinary bladder stones present. Patient is post hyste rectomy. No pelvic mass seen. No ascites. Impression: Small nonobstructing right renal stone and urinary bladder stone. No other significant findings. Reviewed, dictated and finalized at [facility]. Impression: Small nonobstructing right renal stone and urinary bladder stone. No other significant findings.
[2022-07-24 10:54] LABS: Estimated Glomerular Filt Rate > 60
== END 2022-07-24 10:30 | disposition home or self-care (01) ==
PROVIDERS: PCP Family Medicine; Visit Provider Nurse Practitioner
DX: R10.9 Unspecified abdominal pain (principal); R11.0 Nausea; R63.4 Abnormal weight loss; R19.8 Other specified symptoms and signs involving the digestive system and abdomen
CPT/HCPCS: 74177; Q9967

== ENCOUNTER 2022-08-06 00:12 | Day surgery (SDC) | payer MEDICARE, SELFPAY ==
[2022-07-17 13:23] VITALS: BMI 21.9
--- NOTE | 2022-08-06 09:29 | WPDANESEPPF ---
Anes - Initial Pre Proc Eval Procedure: Operation Date: 08/06/22 11:00 Proposed Procedures p Esophagogastroduodenoscopy - Wilder Santillan MD Date/Time: 08/06/22 09:29 Surgeon: Wilder Santillan MD Pre Op Diagnosis: GERD,Nausea,Abdom.pain,Abnormal weight loss Patient Data Age: 81 Gender: F Height: 1.57 m Weight: 54.5 kg Allergies Allergy/AdvReac Type Severity Reaction Status Date / Time peanut Allergy Intermediate Hives Verified 08/06/22 09:46 adhesive Allergy Mild RASH Verified 08/06/22 09:46 Penicillins Allergy Unknown Rash Verified 08/06/22 09:46 Sulfa (Sulfonamide Allergy Unknown Rash Verified 08/06/22 09:46 Antibiotics) Home Medications Medication Instructions Recorded Confirmed Type alprazolam 0.25 mg tablet 0.25 mg PO BID PRN Anxiety 04/22/19 08/06/22 History apixaban 5 mg tablet (Eliquis) 5 mg PO BID 04/22/19 08/06/22 History levothyroxine 50 mcg tablet 50 mcg PO DAILY 04/22/19 08/06/22 History Caltrate 600 plus D 1 tab-cap PO DAILY 12/21/19 08/06/22 History Centrum Silver 1 tablet PO DAILY 12/21/19 08/06/22 History Ocuvite with Lutein 1 tablet PO DAILY 12/21/19 08/06/22 History Refresh Tears 1 drp EACH EYE QID PRN Dry Eyes 12/21/19 08/06/22 History Vitamin C 1 tablet PO DAILY 12/21/19 08/06/22 History solifenacin 5 mg tablet (Vesicare) 5 mg PO DAILY 12/21/19 08/06/22 History Lactobacillus acidophilus 100 mg 100 mg PO DAILY 06/18/22 08/06/22 History (1 billion cell) capsule ondansetron HCl 4 mg tablet 4 mg PO Q8H PRN nausea and 06/18/22 08/06/22 Rx vomiting #30 tabs Saccharomyces boulardii 250 mg 250 mg PO BID 07/17/22 08/06/22 History capsule (Florastor) Patient hx anesthesia problems: none Family hx anesthesia problems: none Results Review: All pre-operative results and documents have been reviewed as part of the pre-operative evaluation. [facility] Past Medical History Medical History (Updated 07/16/22 @ 11:13 by Yumi Vega, KAMERON) Abdominal pain Acute diarrhea Arthritis Atherosclerosis of aorta Borborygmi C. difficile diarrhea Calculus of kidney Chest pain Chronic embolism and thrombosis of unspecified vein Generalized anxiety disorder GERD (gastroesophageal reflux disease) GERD without esophagitis Hemorrhoids History of DVT (deep vein thrombosis) Hyperlipidemia, unspecified Hypothyroidism Nausea Overactive bladder Tubular adenoma Weight loss Surgical History Surgical History H/O inguinal hernia repair 1970,2004 History of bladder suspension procedure 1997 History of hysterectomy 1980 History of lumbar fusion 1999 Family History Family History Father Emphysema lung Grandparent Breast cancer Maternal Grandmother Throat cancer Maternal Grandfather Social History Social History Smoking status: Never smoker Alcohol intake: never Substance use: never Substance use type: does not use Lack of Transportation: No Lack of Food: Never True Current Housing: I Have Housing Concerned About Future Housing: No Difficulty Paying Gas/Electric Bills: No Difficulty Paying for Meds: No Currently Unemployed: YES Education: Grade School Difficulty w/ Childcare or Family Care: No Living arrangements: with family Occupation/Education: retired Gender identity (if verbalized by the patient): Female Sexual Orientation (if Verbalized by the Patient): Straight or Heterosexual Spiritual care concerns: No Anes - Eval Final PreProcedure Day of Procedure 08/06/22 09:29 Patient weight: normal Heart: regular rate and rhythm Lungs: clear to auscultation and normal air movement Airway: Mallampati scale class II Neurological: alert and oriented Last oral intake: >/= 8 hours ASA classification: III Emergent: no Anesthetic plan: proceed Anesthesia ty
[2022-08-06 09:48] VITALS: BP 166/86; PULSE 87; RESP 17; TEMP 36.3; O2SAT 99; BMI 21.4
--- NOTE | 2022-08-06 10:04 | WPDHPUPDATE1 ---
History and Physical Update Update Date/Time: 08/06/22 10:04 History and Physical has been reviewed, including an updated exam of the patient. There are NO changes in the patient's condition. Risks, benefits, and alternatives have been discussed and questions answered. Patient agrees to proceed with procedure.
[2022-08-06] MEDS: LACTATED RINGERS 1,000 ML 150 ML IV CONT (10:11)
[2022-08-06 11:15] VITALS: BP 119/57; PULSE 75; RESP 16; O2SAT 100
[2022-08-06 11:25] VITALS: BP 119/57; PULSE 75; RESP 16; O2SAT 100
[2022-08-06 11:35] VITALS: BP 135/67; PULSE 72; RESP 22; O2SAT 100
== END 2022-08-06 11:43 | disposition home or self-care (01) ==
PROVIDERS: PCP Family Medicine; Visit Provider Internal Medicine Gastroenterology
PROC: 0DJ08ZZ Inspection of Upper Intestinal Tract, Via Natural or Artificial Opening Endoscopic (ICD-10-PCS; CPT 43235; principal; 2022-08-06 11:00)
DX: R11.0 Nausea (principal); R10.84 Generalized abdominal pain; K21.9 Gastro-esophageal reflux disease without esophagitis; I82.91 Chronic embolism and thrombosis of unspecified vein; F41.1 Generalized anxiety disorder; E03.9 Hypothyroidism, unspecified; E78.5 Hyperlipidemia, unspecified; N32.81 Overactive bladder; I70.0 Atherosclerosis of aorta; Z79.01 Long term (current) use of anticoagulants; Z98.1 Arthrodesis status
CPT/HCPCS: 43239; 87081; J2704; J7120

== ENCOUNTER 2022-10-25 11:39 | Outpatient (CLI) | payer MEDICARE, SELFPAY ==
--- NOTE | ~2022-10-25 | XR_ITS ---
EXAMINATION: XR abdomen/kub 1V DATE: 10/25/2022 12:01 INDICATION: Calculus of kidney. TECHNIQUE: A supine view of the abdomen on 2 radiographs was obtained. COMPARISON: CT abdomen and pelvis 07/24/2022 FINDINGS: There are no dilated loops of bowel. There is no visible urolithiasis. IMPRESSION: 1. No visible urolithiasis. Reviewed, dictated and finalized at location B. IMPRESSION: 1. No visible urolithiasis.
== END 2022-10-25 11:40 | disposition home or self-care (01) ==
LOC: ANHIMG 11:47
PROVIDERS: PCP Family Medicine; Visit Provider Internal Medicine Nephrology
DX: N20.0 Calculus of kidney (principal)
CPT/HCPCS: 74018

== ENCOUNTER 2023-02-10 14:16 | Outpatient (CLI) | payer MEDICARE, SELFPAY ==
--- NOTE | ~2023-02-10 | XR_ITS ---
EXAMINATION: XR thoracic spine 3V DATE: 02/10/2023 14:46 INDICATION: Thoracic back pain TECHNIQUE: AP, lateral and lateral swimmer's views of the thoracic spine were obtained. COMPARISON: None. FINDINGS: Bone alignment is normal. There is no fracture. There is mild loss of intervertebral disc s pace height at multiple levels in the thoracic spine. The vertebral body heights are maintained. Smal l degenerative osteophytes project from the anterior endplates of multiple vertebral bodies. IMPRESSION: 1. Mild thoracic spondylosis without acute findings. Reviewed, dictated and finalized at location F. DOCTOR
--- NOTE | ~2023-02-10 | XR_ITS ---
EXAMINATION: XR lumbar spine min 4V DATE: 02/10/2023 14:46 INDICATION: Chronic low back pain TECHNIQUE: Anteroposterior, lateral, and bilateral oblique views of the lumbar spine, and cone-down l ateral view of the lumbosacral junction were obtained. COMPARISON: 05/20/2017 FINDINGS: There are 10 degrees of lumbar dextrocurvature. Bone alignment is normal. There is no fract ure. There is mild loss of intervertebral disc space height at L1-2. The vertebral body heights are m aintained. There is moderate facet joint osteoarthritis of the mid and lower lumbar spine. IMPRESSION: 1. Mild lumbar spondylosis without acute findings or significant interval change. Reviewed, dictated and finalized at location F. ETICIAN FACIALIST IMPRESSION: 1. Mild lumbar spondylosis without acute findings or significant interval eid consuelo
== END 2023-02-10 14:17 | disposition home or self-care (01) ==
PROVIDERS: PCP Family Medicine; Visit Provider Physician Assistant
DX: M54.9 Dorsalgia, unspecified (principal); M54.50 Low back pain, unspecified; M43.04 Spondylolysis, thoracic region; M43.06 Spondylolysis, lumbar region
CPT/HCPCS: 72072; 72110

== ENCOUNTER → 2023-05-22 13:16 | Outpatient (CLI) | payer MEDICARE, SELFPAY ==
--- NOTE | ~2023-05-22 | DEXA_ITS ---
Bone Density Report Name: ANGELA NORTH Age: 82 Sex: Female Ethnicity: White Date of : 1940 Indication: osteopenia; parental hip fracture; prior fracture; hysterectomy; postmenopausal Referring Provider: Janel Hinton Study: Bone densitometry was performed. Exam Date: May 22, 2023 Accession number: [id number] Bone Density: Region BMD T-score Z-score Classification AP Spine (L1-L4) 0.859 -1.7 1.1 Osteopenia Femoral Neck (Left) 0.560 -2.6 -0.2 Osteoporosis Total Hip (Left) 0.677 -2.2 0.0 Osteopenia Femoral Neck (Right) 0.653 -1.8 0.7 Osteopenia Total Hip (Right) 0.709 -1.9 0.3 Osteopenia Total Hip Mean 0.693 -2.1 0.2 Osteopenia World Health Organization criteria for BMD impression classify patients as: Normal (T-score at or above -1.0), Osteopenia (T-score between -1.0 and -2.5), or Osteoporosis (T-score at or below -2.5). 10-year Fracture Risk: FRAX not reported because: Some T-score for Spine Total or Hip Total or Femoral Neck at or below -2.5 Prior hip or vertebral fracture Previous Exams: Region Exam Age BMD T-score BMD Change BMD Change Date g/cm2 vs Baseline vs Previous AP Spine(L1-L4) 05/22/2023 82 0.859 -1.7 0.008 -0.044* 01/13/2021 80 0.903 -1.3 0.052* 0.002 08/14/2018 77 0.902 -1.3 0.050* 0.035* 07/24/2016 75 0.867 -1.6 0.016 -0.050* 07/12/2014 73 0.917 -1.2 0.065* 0.008 04/08/2012 71 0.909 -1.3 0.057* 0.019 03/09/2010 69 0.890 -1.4 0.038* 0.029* 03/03/2009 68 0.861 -1.7 0.010 -0.017 03/02/2008 67 0.878 -1.5 0.027* 0.027* 09/20/2004 63 0.851 -1.8 Total Hip(Left) 05/22/2023 82 0.677 -2.2 -0.146* -0.090* 01/13/2021 80 0.767 -1.4 -0.056* -0.017 08/14/2018 77 0.784 -1.3 -0.039* -0.065* 07/24/2016 75 0.849 -0.8 0.026 -0.003 07/12/2014 73 0.852 -0.7 0.029* 0.047* 04/08/2012 71 0.805 -1.1 -0.018 0.003 03/09/2010 69 0.802 -1.1 -0.021 0.015 03/03/2009 68 0.788 -1.3 -0.036* 0.003 03/02/2008 67 0.784 -1.3 -0.039* -0.039* 09/20/2004 63 0.824 -1.0 Total Hip(Right) 05/22/2023 82 0.709 -1.9 -0.091* -0.045* 01/13/2021 80 0.754 -1.5 -0.046* -0.027 08/14/2018 77 0.781 -1.3 -0.020 -0.034* 07/24/2016 75 0.815 -1.0 0.014 -0.031* 07/12/2014 73 0.84
--- NOTE | ~2023-05-22 | MM_ITS ---
EXAMINATION: MM screening arturo BI w jonas HISTORY: Screening TECHNIQUE: Craniocaudal and mediolateral oblique 3-D tomosynthesis images were obtained and synthetic 2-D images were generated. CAD analysis was submitted and interpreted. COMPARISON: Comparison to multiple prior studies sequentially, with oldest reviewed study dated 05/2016. BREAST PARENCHYMAL COMPOSITION: There are scattered areas of fibroglandular density. FINDINGS: There is no evidence of suspicious mass, calcification, or architectural distortion to sugg est malignancy in either breast. There has been no suspicious interval change. IMPRESSION: 1. No mammographic evidence of malignancy. 2. Recommend routine screening mammography in one year. BI-RADS Category 1: Negative Reviewed, dictated and finalized at location A. ERSHIP COORDINATOR
== END ==
PROVIDERS: PCP Physician Assistant; Visit Provider Physician Assistant
DX: Z12.31 Encounter for screening mammogram for malignant neoplasm of breast (principal); Z78.0 Asymptomatic menopausal state; M85.89 Other specified disorders of bone density and structure, multiple sites; M81.0 Age-related osteoporosis without current pathological fracture
CPT/HCPCS: 77063; 77067; 77080

== ENCOUNTER 2023-10-16 11:45 | Outpatient (CLI) | payer MEDICARE, SELFPAY ==
--- NOTE | ~2023-10-16 | XR_ITS ---
EXAM: XR abdomen/kub 1V DATE: 10/16/2023 12:01 HISTORY: N20.0 - Calculus of kidney . COMPARISON: 10/25/2022; CT abdomen pelvis 07/24/2022. FINDINGS: Normal bowel gas pattern. No organomegaly. Punctate calcifications over the left midpole. Somewhat linear calcification over the right lower pole. Lumbar scoliosis and degenerative disc disea se. Bilateral hip osteoarthritis. Pelvic enthesopathy. IMPRESSION: Stable bilateral nephrolithiasis. Reviewed, dictated and finalized at location K.
== END 2023-10-16 11:46 | disposition home or self-care (01) ==
PROVIDERS: PCP Family Medicine; Visit Provider Internal Medicine Nephrology
DX: N20.0 Calculus of kidney (principal)
CPT/HCPCS: 74018

== ENCOUNTER 2024-01-26 13:29 | Outpatient (CLI) | payer MEDICARE, SELFPAY ==
--- NOTE | ~2024-01-26 | CT_ITS ---
Non-contrast CT scan of the Abdomen and Pelvis Clinical indication: Kidney stone Technique: 2.5 mm axial scans were obtained through the abdomen and pelvis without intravenous or or al contrast. Dose reduction technique was used on this scan by utilizing automated exposure control a nd iterative reconstruction technique. The dose-length product (DLP) was 192.05 mGy-cm. COMPARISON: 07/24/2022 Findings: Images through the lung bases reveal no abnormalities. Punctate bilateral nonobstructing renal stones are present. No ureteral stone or hydronephrosis on ei ther side. The liver, spleen, pancreas, gallbladder, and adrenals appear normal. There is no aortic aneurysm. There is no evidence of bowel obstruction. Images through the pelvis were performed. There is no evidence of ascites or lymphadenopathy. Small l ayering urinary bladder stones are present. No pelvic mass evident. Impression: Punctate bilateral nonobstructing renal stones. Small layering urinary bladder stones. Reviewed, dictated and finalized at [facility]. ER DEVELOPMENT FACILITATOR Impression: Punctate bilateral nonobstructing renal stones. Small layering urinary bladder stones.
== END 2024-01-26 13:30 | disposition home or self-care (01) ==
PROVIDERS: PCP Family Medicine; Visit Provider Urology
DX: N20.0 Calculus of kidney (principal); N21.0 Calculus in bladder
CPT/HCPCS: 74176

== ENCOUNTER 2024-03-18 12:10 | Emergency (ER) | payer MEDICARE, SELFPAY ==
--- NOTE | ~2024-03-18 | XR_ITS ---
EXAM: XR forearm LT 2V DATE: 03/18/2024 17:24 HISTORY: fall 2 days ago, elbow /wrist pain . COMPARISON: None available. FINDINGS: Decreased mineralization. No fracture or dislocation. No lytic or blastic lesion. Mild deg enerative changes at the elbow and wrist. No erosion or periosteal change. Soft tissues within normal limits. IMPRESSION: No acute osseous finding the left forearm. Reviewed, dictated and finalized at location K. D TEACHER
--- NOTE | ~2024-03-18 | XR_ITS ---
XR hand LT min 3V Ordering provider: Sujata Nelson PA-C History: . fall PAIN . Comparison: None. FINDINGS: BONES: No acute fracture or dislocation. Osteopenia of the bones. JOINT SPACES: Narrowing of the proximal and distal interphalangeal joints. SOFT TISSUES: Unremarkable. IMPRESSION: No acute osseous abnormality left hand. Polyarticular osteoarthritic changes. Reviewed, dictated and finalized at location A. PENS ASSEMBLER
--- NOTE | ~2024-03-18 | CT_ITS ---
EXAMINATION: CT facial & cervical spine wo DATE: 03/18/2024 13:26 INDICATION: Head and neck injury. Fall. TECHNIQUE: Computed tomography (CT) of the maxillofacial region and cervical spine was performed with out intravenous contrast. Automated exposure control and iterative reconstruction technique were empl oyed. The dose-length product was 127.03 mGy-cm. COMPARISON: CT cervical spine 09/03/2016 FINDINGS: MAXILLOFACIAL CT: There are likely changes of ocular lens replacement surgeries. There is mucosal thickening in the par anasal sinuses. There is leftward deviation of the nasal septum. No fracture. CERVICAL SPINE CT: There is a 4 mm nodule in left lung upper lobe, likely benign. There is kyphosis of cervical spine. T here is 13 degrees levoscoliosis of cervical spine. Vertebral body heights are normal. There is mildl y decreased disc height at C4-C5, C5-C6, and C6-C7. The following disc levels are specifically discus sed: C2-C3: There is moderate right and mild left uncovertebral joint osteoarthritis. There is severe righ t facet joint osteoarthritis. There is ankylosis of left facet joint with moderate hypertrophy. There is mild bilateral neural foraminal stenosis. There is no central canal stenosis. C3-C4: There is severe right and mild left uncovertebral joint osteoarthritis. There is severe bilate ral facet joint osteoarthritis. There is moderate right and mild left neural foraminal stenosis. Ther e is no central canal stenosis. C4-C5: There is severe right and mild left uncovertebral joint osteoarthritis. There is moderate left facet joint osteoarthritis. There is ankylosis of left facet joint with severe hypertrophy. There is moderate right neural foraminal stenosis. There is no central canal stenosis. C5-C6: There is severe bilateral uncovertebral joint osteoarthritis. There is severe right and mild l eft facet joint osteoarthritis. There is mild right neural foraminal stenosis. There is no central ca nal stenosis. C6-C7: There is mild bilateral uncovertebral joint osteoarthritis. There is no facet joint osteoarthr itis. There is no neural foraminal stenosis. There is mild central canal stenosis. C7-T1: There is mild right uncovertebral joint osteoarthritis. There is mild bilateral facet joint os teoarthritis. There is no neural foraminal stenosis. There is no central canal stenosis. IMPRESSION: 1. No fracture. 2. Moderate cervical spondylosis. 3. Cervical levoscoliosis. Reviewed, dictated and finalized at location A. AGE DYER
--- NOTE | ~2024-03-18 | CT_ITS ---
EXAMINATION: CT brain wo con DATE: 03/18/2024 13:26 INDICATION: Head injury. Fall. TECHNIQUE: Computed tomography (CT) of the head was performed without intravenous contrast. The mA wa s adjusted according to patient size. Iterative reconstruction technique was employed. The dose-lengt h product was 605.33 mGy-cm. COMPARISON: Head CT 09/03/2016 FINDINGS: There is no intracranial hemorrhage, acute infarction, or abnormal intracranial mass lesion . There are scattered areas of low attenuation in the cerebral white matter, which is within normal l imits for the patient's age. The ventricles are normal in size. There is mucosal thickening in the pa ranasal sinuses. There are likely changes of ocular lens replacement surgeries. The mastoid air cells are normal. IMPRESSION: 1. Normal aging brain. Reviewed, dictated and finalized at location A. ISTICAL TYPIST IMPRESSION: 1. Normal aging brain.
--- NOTE | ~2024-03-18 | CT_ITS ---
EXAMINATION: CT thoracic spine wo con DATE: 03/18/2024 13:26 INDICATION: Back injury. Fall. TECHNIQUE: Computed tomography (CT) of the thoracic spine was performed without intravenous contrast. Automated exposure control and iterative reconstruction technique were employed. The dose-length pro duct was 237.20 mGy-cm. COMPARISON: None FINDINGS: There is mild scarring at the lung apices. There is a 4 mm nodule in left upper lobe, proba aron benign. There is 8 degrees dextrocurvature of thoracic spine. Vertebral body heights are normal. There are bridging endplate osteophytes from T2 to T11, consistent with diffuse idiopathic skeletal h yperostosis (DISH). There is multilevel mild facet joint osteoarthritis. No neural foraminal stenosis or central canal stenosis. IMPRESSION: 1. No fracture. 2. DISH. Reviewed, dictated and finalized at location A. DING CLERK IMPRESSION: 1. No fracture. 2. DISH.
--- NOTE | ~2024-03-18 | XR_ITS ---
XR shoulder LT min 2V Ordering provider: Sujata Nelson History: . . Comparison: None. FINDINGS: BONES: Lucency seen in the proximal humerus in the scapula reveal which may indicate a fracture. Foll ow-up advised. JOINT SPACES: The acromioclavicular joint is normal. The glenohumeral joint is normal. SOFT TISSUES: Normal. IMPRESSION: Possible nondisplaced fracture in the proximal left humerus. Follow-up advised. Reviewed, dictated and finalized at location A. TRUCTION PRODUCER
[2024-03-18 12:13] VITALS: BP 122/76; PULSE 86; RESP 16; TEMP 36.3; O2SAT 98
--- NOTE | 2024-03-18 13:07 | ED.FALL ---
HPI - Fall General Chief Complaint: Fall <Sujata Nelson PA-C - Last Filed: 03/22/24 21:06> Stated Complaint: fall <Sujataglenny Avery SLAVA Nelson - Last Filed: 03/22/24 21:06> Time Seen by Provider: 03/18/24 13:08 <uSjata Nelson PA-C - Last Filed: 03/22/24 21:06> Focused HPI: This is a 83 year old female that presents to the ER after a fall yesterday morning. Reports she hit her head. She did not lose consciousness. She is on anticoagulation. Reports injuries to the left hand and shoulder. Also reports upper back pain GENERAL: Well-appearing, well-nourished, and in no acute distress. HEAD: Normocephalic, atraumatic. CHEST: Clear to auscultation. ?No respiratory distress. HEART: Regular rate and rhythm.? NEURO: ?Alert and oriented x3. Patient screened in triage and initial orders placed.? ?Additional care and disposition to be based upon?diagnostic testing and treatment. <Sujata Nelson PA-C - Last Filed: 03/22/24 21:06> Focused HPI: This is a 83 year old female that presents to the ER after a fall yesterday morning. Reports she hit her head. She did not lose consciousness. She is on anticoagulation. Reports injuries to the left hand and shoulder. Also reports upper back pain GENERAL: Well-appearing, well-nourished, and in no acute distress. HEAD: Normocephalic, atraumatic. CHEST: Clear to auscultation. ?No respiratory distress. HEART: Regular rate and rhythm.? NEURO: ?Alert and oriented x3. Patient screened in triage and initial orders placed.? ?Additional care and disposition to be based upon?diagnostic testing and treatment. <SLAVA Marquez Last Filed: 03/18/24 20:32> Source: patient <SLAVA Marquez Last Filed: 03/18/24 20:32> Mode of arrival: ambulatory <SLAVA Marquez Last Filed: 03/18/24 20:32> Limitations: no limitations <Neeta Mcnair PA-C - Last Filed: 03/18/24 20:32> History of Present Illness HPI Narrative: Agree with above HPI. Reports she lost her balance and fell. Denied prodromal symptoms or syncope. History of AFib, on Eliquis. Has taken Tylenol for the pain. Denies numbness or tingling, weakness, dizziness, lightheadedness. <Neeta Mcnair PA-C - Last Filed: 03/18/24 20:32> Related Data Home Medications: Home Medications ?Medication ?Instructions ?Recorded ?Confirmed ?Last Taken ?Type Centrum Silver 1 tablet PO DAILY 12/21/19 02/02/24 Unknown History Ocuvite with Lutein 1 tablet PO DAILY 12/21/19 02/02/24 Unknown History Refresh Tears 1 drp EACH EYE QID PRN Dry Eyes 12/21/19 02/02/24 Unknown History Lactobacillus acidophilus 100 mg 100 mg PO DAILY 06/18/22 02/02/24 Unknown History (1 billion cell) capsule <Sujata Nelson PA-C - Last Filed: 03/22/24 21:06> Allergies/Adverse Reactions: Allergies Allergy/AdvReac Type Severity Reaction Status Date / Time peanut Allergy Intermediate Hives Verified 03/18/24 15:10 adhesive Allergy Mild RASH Verified 03/18/24 15:10 Penicillins Allergy Unknown Rash Verified 03/18/24 15:10 Sulfa (Sulfonamide Allergy Unknown Rash Verified 03/18/24 15:10 Antibiotics) <Sujata Nelson PA-C - Last Filed: 03/22/24 21:06> Review of Systems Review of Systems: All systems reviewed & are unremarkable except as noted in HPI. <Neeta Mcnair PA-C - Last Filed: 03/18/24 20:32> All systems reviewed & are unremarkable except as noted in HPI and below <Neeta Mcnair PA-C - Last Filed: 03/18/24 20:32> PMFSH Past Medical History Medical History: Medical History Allergic rhinitis GERD (gastroesophageal reflux disease) History of DVT (deep vein thrombosis) X3 Atherosclerosis of aorta Overactive bladder Generalized anxiety disorder Hyperlipidemia, unspecified Hypothyroidism Arthritis <Sujata Nelson PA-C - Last Filed: 03/22/24 21:06> Surgical History Surgical History: Surgical History History of bladder suspension procedure 1997 History of lumbar fusion 1999 History of hysterectomy 1981 H/O inguinal hernia repair 1970,2004 <Sujata Nelson PA-C - Last Filed: 03/22/24 21:06> Family History Family History: Family History Father Emphysema lung Grandparent Breast cancer Maternal Grandmother Throat cancer Maternal Grandfather <Sujata Nelson PA-C - Last Filed: 03/22/24 21:06> Social History Social History: Social History Smoking status: Never smoker Alcohol intake: never Substance use: never Substance use type: does not use Do You Feel Safe in your Home?: Yes Lack of Transportation: No Lack of Food: Never True Current Housing: I Have Housing Concerned About Future Housing: No Difficulty Paying Gas/Electric Bills: No Difficulty Paying for Meds: No Currently Unemployed: YES Education: High School Diploma/GED Difficulty w/ Childcare or Family Care: No Living arrangements: with family Occupation/Education: retired Gender identity (if verbalized by the patient): Female Sexual Orientation (if Verbalized by the Patient): Straight or Heterosexual Spiritual care concerns: No <Sujata Neslon PA-C - Last Filed: 03/22/24 21:06> Exam Narrative: GENERAL: Elderly but well appearing, well-nourished, non-toxic, in no acute distress. HEAD: Normocephalic, atraumatic. RESPIRATORY: Airway patent, respirations nonlabored. Clear to auscultation bilaterally, no rales, rhonchi, wheezing. CARDIOVASCULAR: Regular rate and rhythm without murmurs, rubs, or gallops. Radial pulses strong and easily palpable MUSCULOSKELETAL: No gross deformities. TTP over L anterior shoulder joint with mild limited ROM d/t pain. Mild tenderness over medial epicondyle of left elbow. No significant swelling. Full range of motion elbow. Tenderness palpation over distal ulnar region extending into L 4th and 5th metacarpal region with some swelling and bruising present over dorsal hand. Sensation intact. Mild tenderness throughout upper midline thoracic region without palpable bony deformities or step-offs. No significant tenderness throughout midline lumbar region. SKIN: Warm, dry, normal color. NEURO: A&O X3. Speech clear. Cranial nerves II-XII grossly intact. Steady gait. No ataxic movements. PSYCHIATRIC: Appropriate mood and affect. Normal interaction. <SLAVA Marquez Last Filed: 03/18/24 20:32> Course Vital Signs Vital signs: Vital Signs Temperature 97.3 F L 03/18/24 12:13 Pulse Rate 86 03/18/24 12:13 Respiratory Rate 16 03/18/24 12:13 Blood Pressure 122/76 03/18/24 12:13 Pulse Oximetry 98 03/18/24 12:13 Temperature 97.6 F 03/18/24 17:43 Pulse Rate 82 03/18/24 17:43 Respiratory Rate 17 03/18/24 17:43 Blood Pressure 124/73 03/18/24 17:43 Pulse Oximetry 99 03/18/24 17:43 <Sujata Nelson PA-C - Last Filed: 03/22/24 21:06> Vital Signs Temperature 97.3 F L 03/18/24 12:13 Pulse Rate 86 03/18/24 12:13 Respiratory Rate 16 03/18/24 12:13 Blood Pressure 122/76 03/18/24 12:13 Pulse Oximetry 98 03/18/24 12:13 Temperature 97.6 F 03/18/24 17:43 Pulse Rate 82 03/18/24 17:43 Respiratory Rate 17 03/18/24 17:43 Blood Pressure 124/73 03/18/24 17:43 Pulse Oximetry 99 03/18/24 17:43 <SLAVA Marquez Last Filed: 03/18/24 20:32> MDM - Fall MDM Narrative Medical decision making narrative: Patient presented to ED status post ground level fall 2 days ago, head injury, on Eliquis. Also reporting pain to left arm/shoulder. Neurovascularly intact. No gross deformities or focal neurologic deficits. No prodromal symptoms prior to the fall. CT brain, cervical spine, facial bones without evidence of traumatic findings. CT thoracic spine negative for acute fracture. Does show dish, which patient is aware of. Left hand x-ray is negative. Left forearm x-ray negative. Left shoulder x-ray does show possible nondisplaced proximal humerus fracture. Consistent with acute tenderness on exam. Will treat as acute fracture. Patient given sling in the ED. Advised she will need to follow-up with orthopedics for further evaluation and management of fracture. Offered to prescribe pain medication, however patient states she will be fine with Tylenol. Given strict return precautions. She agrees with plan. Discharged in stable condition. <SLAVA Marquez Last Filed: 03/18/24 20:32> Medical Records Attestation: I reviewed the patient's medical records. <SLAVA Marquez Last Filed: 03/18/24 20:32> Imaging Data Attestation: I personally reviewed and interpreted this imaging study as follows: <SLAVA Marquez Last Filed: 03/18/24 20:32> Radiologist's impression: ITS Impressions Head CT 03/18/24 13:28 IMPRESSION: 1. Normal aging brain. Head/Cervical Spine/Facial Bones CT 03/18/24 13:35 IMPRESSION: 1. No fracture. 2. Moderate cervical spondylosis. 3. Cervical levoscoliosis. Hand X-Ray 03/18/24 13:42 IMPRESSION: No acute osseous abnormality left hand. Polyarticular osteoarthritic changes. Thoracic Spine CT 03/18/24 13:42 IMPRESSION: 1. No fracture. 2. DISH. Shoulder X-Ray 03/18/24 13:44 IMPRESSION: Possible nondisplaced fracture in the proximal left humerus. Follow-up advised. Forearm X-Ray 03/18/24 17:34 IMPRESSION: No acute osseous finding the left forearm. <SLAVA Marquez Last Filed: 03/18/24 20:32> Critical Care Time Critical Care Time Critical Care Time: No <SLAVA Retana Last Filed: 03/22/24 21:06> Discharge Plan Discharge Clinical Impression: Fall from ground level Fracture of proximal end of humerus Qualifiers: Encounter type: initial encounter Fracture type: closed Fracture morphology: other fracture Fracture alignment: nondisplaced Laterality: left Qualified Code(s): S42.295A - Other nondisplaced fracture of upper end of left humerus, initial encounter for closed fracture Closed head injury Qualifiers: Encounter type: initial encounter Qualified Code(s): S09.90XA - Unspecified injury of head, initial encounter <Sujata Nelson PA-C - Last Filed: 03/22/24 21:06> Patient Disposition: Home, Self-Care <Sujata Nelson PA-C - Last Filed: 03/22/24 21:06> Condition: Stable <SLAVA Retana Last Filed: 03/22/24 21:06> Instructions: Antibiotic Form, Head Injury (ED), Proximal Humerus Fracture (ED) <Sujata Nelson PA-C - Last Filed: 03/22/24 21:06> Additional Instructions: Your imaging here showed a fracture of your left shoulder. Utilize sling for comfort and support. Recommend frequent icing to shoulder, continue Tylenol as needed for pain. Follow-up with orthopedics for further evaluation of fracture. Call office to make appointment. Return to the ED if you experience worsening or severe pain, numbness, recurrent injury, severe dizziness, passing out, or any other symptoms of concern. <Sujata Nelson PA-C - Last Filed: 03/22/24 21:06> Patient Language: Salvadorean <Sujata Nelson PA-C - Last Filed: 03/22/24 21:06> Prescriptions: No Action Lactobacillus acidophilus 100 mg (1 billion cell) capsule 100 mg PO DAILY cetirizine [Allergy Relief (cetirizine)] 10 mg tablet 10 mg PO DAILY Qty: 30 0RF coenzyme Q10 400 mg capsule 400 mg PO DAILY Qty: 30 0RF gvsl-uaua-zjpjvq-taur-herb 317 187.5 mg-100 mg -100 mg-50 mg capsule 1 cap PO DAILY Qty: 30 0RF omega 9-vlq-kwl-fish oil-krill [MegaRed Advanced 4-in-1] 339 mg-314 mg- 500 mg capsule 1 cap PO DAILY Qty: 30 0RF magnesium oxide 400 mg magnesium capsule 400 mg PO DAILY Qty: 30 0RF docusate sodium [Stool Softener] 100 mg capsule 100 mg PO DAILY Qty: 30 0RF Centrum Silver 1 tablet PO DAILY Ocuvite with Lutein 1 tablet PO DAILY Refresh Tears 1 drp EACH EYE QID PRN (Reason: Dry Eyes) Eliquis 5 mg tablet See Rx Instructions .ROUTE .COMPLEX Qty: 180 2RF Dose Instruction: TAKE 1 TABLET BY MOUTH TWICE DAILY Rx Instructions: TAKE 1 TABLET BY MOUTH TWICE DAILY levothyroxine 50 mcg tablet 50 mcg PO DAILY 90 Days Qty: 90 1RF hydrocortisone 2.5 % cream 1 applic topical BID PRN (Reason: hemorrhoids) Qty: 30 0RF dexlansoprazole 60 mg capsule,biphase delayed releas See Rx Instructions .ROUTE .COMPLEX Qty: 90 3RF Dose Instruction: TAKE 1 CAPSULE BY MOUTH DAILY Rx Instructions: TAKE 1 CAPSULE BY MOUTH DAILY alprazolam 0.25 mg tablet 0.25 mg PO BID PRN (Reason: anxiety) Qty: 180 0RF <Sujata Nelson PA-C - Last Filed: 03/22/24 21:06> Follow-up/Referrals: Louie Antonio MD [Primary Care Provider] - Alfonso Chapman MD [Physician] - (ORTHOPEDICS) <Sujata Nelson PA-C - Last Filed: 03/22/24 21:06> Time of Disposition: 18:27 <Sujata Nelson PA-C - Last Filed: 03/22/24 21:06> 18:27 <Neeta Mcnair PA-C - Last Filed: 03/18/24 20:32>
[2024-03-18 17:43] VITALS: BP 124/73; PULSE 82; RESP 17; TEMP 36.4; O2SAT 99
== END 2024-03-18 18:50 | disposition home or self-care (01) ==
PROVIDERS: Emergency Provider Physician Assistant; PCP Family Medicine
DX: S42.295A Other nondisplaced fracture of upper end of left humerus, initial encounter for closed fracture (principal); S09.90XA Unspecified injury of head, initial encounter; K21.9 Gastro-esophageal reflux disease without esophagitis; Z86.718 Personal history of other venous thrombosis and embolism; F41.9 Anxiety disorder, unspecified; E78.5 Hyperlipidemia, unspecified; E03.9 Hypothyroidism, unspecified; M19.90 Unspecified osteoarthritis, unspecified site; Z79.01 Long term (current) use of anticoagulants; W19.XXXA Unspecified fall, initial encounter
CPT/HCPCS: 70450; 70486; 72125; 72128; 73030; 73090; 73130; 99284; A4565

== ENCOUNTER 2024-06-18 12:19 | Outpatient (CLI) | payer MEDICARE, SELFPAY ==
--- NOTE | ~2024-06-18 | XR_ITS ---
EXAMINATION: XR lumbar spine 2-3V DATE: 06/18/2024 12:41 INDICATION: Low back pain, unspecified. TECHNIQUE: 3 views of lumbar spine were obtained. COMPARISON: Lumbar spine radiographs 02/10/2023, CT abdomen and pelvis 01/26/2024 FINDINGS: There is 10 degrees dextroscoliosis of lumbar spine. Vertebral body heights are normal. The re is moderately decreased disc height at L1-L2. There is severely decreased disc height at L5-S1 wit h interbody fusion. There is multilevel iyot-[id number] facet joint osteoarthritis. IMPRESSION: 1. Moderate lumbar spondylosis. 2. Lumbar dextroscoliosis. Reviewed, dictated and finalized at location A.
--- OUTSIDE RECORDS SUMMARY | 2024-06-18 12:46 | XMS_ITS | Clinical Summary ---
Author Organization [facility] Address [address] [place] [id number] Care Team Providers Care [facility] General Manager Name Role Phone Louie Antonio MD Primary Care Provider [phone] Allergies Active Allergy Reactions Criticality Noted Date Comments Penicillins Rash Low 05/12/2021 Medications No known medications Social History Tobacco Use Types Packs/Day Years Used Date Smoking Tobacco: Never Assessed Comments Unknown Sex and Gender Information Value Date Recorded Sex Assigned at Not on file Legal Sex Female 4:50 PM CDT Gender Identity Not on file Sexual Orientation Not on file Last Filed Vital Signs Vital Sign Reading Time Taken Comments Blood Pressure 154/76 05/12/2021 12:42 PM CHILD MONITOR Pulse 69 05/12/2021 12:42 PM CHILD MONITOR Temperature 36.3 C (97.4 F) 05/12/2021 12:42 PM CHILD MONITOR Respiratory Rate 20 05/12/2021 12:42 PM CHILD MONITOR Oxygen Saturation 99% 05/12/2021 12:42 PM CHILD MONITOR Inhaled Oxygen Concentration - - Weight 63.5 kg (140 lb) 05/12/2021 12:42 PM CHILD MONITOR Height 165.1 cm (5' 5 ) 05/12/2021 12:42 PM CHILD MONITOR Body Mass Index 23.3 05/12/2021 12:42 PM CHILD MONITOR Plan of Treatment Health Maintenance Due Date Last Done Comments DTaP, Tdap and Td Vaccines (1 - Tdap) 10/26/1959 Annual Medicare Wellness Visit 2005 Dexa Scan (General) 2005 Zoster Vaccines (2 of 3) 05/30/2015 04/04/2015 RSV Immunization or 60+ Years (1 - 1-dose 75+ series) 10/26/2015 Pneumococcal Vaccine: 65+ Years (2 of 2 - PPSV23 or PCV20) 03/28/2021 03/28/2020 COVID-19 Vaccine ( season) 2023 03/25/2021, 06/29/2020 Influenza Adult (#1) 2023 04/13/2021, 01/19/2020, 02/08/2019, Additional history exists Meningococcal B Vaccine Aged Out No l onger eligible based on patient's age to complete this topic Meningococcal Vaccine Aged Out No kellie lori eligible based on patient's age to complete this topic RSV Immunizations Under 20 Months Aged Out No longer eligible based on patient's age to complete this topic Insurance MED [facility] MEDICARE Care Teams [facility] General Manager Relationship Specialty Start Date End Date Louie Antonio MD [address] [place] [address] PCP - General FAMILY PRACTICE 05/12/21
--- OUTSIDE RECORDS SUMMARY | 2024-06-18 12:46 | XMS_ITS | Referral Summary ---
Author Organization [facility] Address [address] [place] [id number] Care Team Providers Care Bath Steward Name Role Phone Janel Hinton Primary Care Provider Allergies Active Allergy Reactions Criticality Noted Date Comments Penicillins Unknown 06/25/2011 Sulfa (Sulfonamide Antibiotics) Unknown 09/21 Medications levothyroxine (SYNTHROID) 50 mcg tablet TK 1 T PO QD 02/04/2020 Activ e Eliquis 5 mg tablet TK 1 T PO BID 01/19/[address] (NexIUM) 40 mg capsule TK 1 C PO D 01/06/2020 Active ALPRAZolam (XANAX) 0.25 mg tablet Take 1 tablet (0.25 mg total) by mouth nightly as needed for anxiety Active nnvep-kz-5-dha-e wc-llkhxle-ejq 1,000-230-60 mg capsule Take by mouth daily Active acidophilus-pect in, citrus 100 million cell-10 mg capsule Take by mouth daily Active calcium carbonate-vitami n D3 (CALTRATE 600 + D) 1500 mg (600 mg elemental) -400 units per tablet Take 1 tablet by mouth daily Active folic acid/multivit-mi n/lutein (CENTRUM SILVER ORAL) Take by mouth daily Active coenzyme Q10 400 mg capsule Take 10 mg by mouth daily Active biotin 5 mg tablet Take 1 mg by mouth daily Active vit C/vit E/lutein/min/ome ga-3 (OCUVITE ORAL) Take by mouth daily Active magnesium oxide (MAG-OX) 400 mg (241.3 mg elemental magnesium) tabletIndication s:hypomagnesemia Take 250 mg by mouth daily Active cetirizine 10 mg capsule Take 10 mg by mouth daily Active fexofenadine-pse udoephedrine (LAUREN-D) 60-120 mg per 12 hr tablet Take 1 tablet by mouth 2 (two) times a day Active docusate sodium (COLACE) 100 mg capsuleIndicatio ns:constipation Take 1 capsule (100 mg total) by mouth daily Active CHOLINE BITARTRATE ORAL Take 648 mg by mouth Active inositoL 500 mg tablet Take by mouth Active solifenacin (VESIcare) 5 mg tablet Take 1 tablet (5 mg total) by mouth daily 03/19/2021 Active nitrofurantoin monohydrate (MACROBID) 100 mg capsule Take 1 capsule (100 mg total) by mouth 2 (two) times a day 03/12/2021 Active vitamin B complex (Vitamins B Complex) capsule Take 1 capsule by mouth daily Active midodrine (PROAMATINE) 2.5 mg tabletIndication s:Symptomatic Orthostatic Hypotension Take 1 tablet (2.5 mg total) by mouth 3 (three) times a day 90 tablet 3 01/08/2023 Active Active Problems No known active problems Social History Tobacco Use Types Packs/Day Years Used Date Smoking Tobacco: Never Smokeless Tobacco: Never Tobacco Cessation:Counseling Given: Not Answered Alcohol Use Standard Drinks/Week Comments Never 0 (1 standard drink = 0.6 oz pur e alcohol) AUDIT-C Answer Date Recorded Q1: How often do you have a drink containing alc ohol? Never 02/14/2020 Average Number of Drinks Not on file 020 Frequency of Binge Drinking Not on file 01/23 Personal Safety Answer Date Recorded Getting School Help Needed Not on file 04/06 Comments Unknown Sex and Gender Information Value Date Recorded Sex Assigned at Not on file Legal Sex Female 8:00 PM TRAIN BRAKEMAN Gender Identity Not on file Sexual Orientation Not on file Last Filed Vital Signs Vital Sign Reading Time Taken Comments Blood Pressure 126/62 04/09/2023 12:54 PM TRAIN BRAKEMAN Pulse 79 04/09/2023 12:54 PM TRAIN BRAKEMAN Temperature 36.7 C (98 F) 02/16/2020 12:54 PM TRAIN BRAKEMAN Respiratory Rate 15 02/14/2020 10:13 AM TRAIN BRAKEMAN Oxygen Saturation 96% 04/09/2023 12:54 PM TRAIN BRAKEMAN Inhaled Oxygen Concentration - - Weight 55.3 kg (122 lb) 04/09/2023 12:54 PM TRAIN BRAKEMAN Height 157.5 cm (5' 2 ) 04/09/2023 12:54 PM TRAIN BRAKEMAN Body Mass Index 22.31 04/09/2023 12:54 PM TRAIN BRAKEMAN Plan of Treatment Not on file Insurance [employer] MEDICARE Care Teams Bath Steward Relationship Specialty Start Date End Date Janel Hinton PA [address] [place] [id number] PCP - General 07/11/20
--- OUTSIDE RECORDS SUMMARY | 2024-06-18 12:46 | XMS_ITS | Clinical Summary ---
Author Organization [facility] Address [address] [place] [id number] Care Team Providers Care Rehabilitation Aide/Scheduler Name Role Phone Janel Hinton Primary Care Provider [phone] Allergies Active Allergy Reactions Criticality Noted Date [...] mouth nightly as needed for anxiety Active xfdct-ic-5-dha-e cm-idymtsq-oyr 1,000-230-60 mg capsule Take by mouth daily [...] Active Active Problems No known active problems Surgical History Surgery Date Site/Laterality Comments HERNIA REPAIR PARTIAL HYSTERECTOMY BACK SURGERY BLADDER REPAIR Medical History Medical History Date Comments DVT (deep venous thrombosis) (HCC) Family History Relation Name Status Comments Brother Father Mother Social History Tobacco Use Types Packs/Day Years [...] on file Legal Sex Female 8:00 PM ENTRY LEVEL PARALEGAL Gender Identity Not on file Sexual Orientation Not on file Obstetrics History Last Filed Vital Signs Vital Sign Reading Time Taken Comments Blood Pressure 126/62 04/09/2023 12:54 PM ENTRY LEVEL PARALEGAL Pulse 79 04/09/2023 12:54 PM ENTRY LEVEL PARALEGAL Temperature 36.7 C (98 F) 02/16/2020 12:54 PM ENTRY LEVEL PARALEGAL Respiratory Rate 15 02/14/2020 10:13 AM ENTRY LEVEL PARALEGAL Oxygen Saturation 96% 04/09/2023 12:54 PM ENTRY LEVEL PARALEGAL Inhaled Oxygen Concentration - - Weight 55.3 kg (122 lb) 04/09/2023 12:54 PM ENTRY LEVEL PARALEGAL Height 157.5 cm (5' 2 ) 04/09/2023 12:54 PM ENTRY LEVEL PARALEGAL Body Mass Index 22.31 04/09/2023 12:54 PM ENTRY LEVEL PARALEGAL Plan of Treatment Health Maintenance Due Date Last Done Comments Depression Screening 1940 Osteoporosis Screening-Bone Density Scan 1940 DTaP/Tdap/Td Vaccine (1 - Tdap) 10/26/1951 Hepatitis B Screening 1958 Well Visit 65+ 2005 Pneumococcal vaccine 65+ (2 of 2 - PPSV23) 11/23/2015 11/22/2014 Zoster Vaccine (2 of 3) 12/05/2015 10/10/2015 Fall Risk Assessment 02/13/2021 02/14/2020 Influenza Vaccine (#1) 2023 , 02/08/2019, 04/26/2017, Additional history exists Insurance [facility] MEDICARE Care Teams Rehabilitation Aide/Scheduler Relationship Specialty Start Date End Date Janel Hinton PA [address] [place] [id number] PCP - General 07/11/20
--- OUTSIDE RECORDS SUMMARY | 2024-06-18 12:48 | XMS_ITS | Clinical Summary ---
Author Organization [facility] Address [address] [place] [address] Care Team Providers Care Process Technician Name Role Phone Louie Antonio MD Primary Care Provider [phone] Source Comments [facility],non-owned Affiliates and Associated Physician Practices is amultiple site organization consisting of ambulatory clinics and hospital sitesin [place], [place], [place] and [place]. This disclosure is being madepursuant to the Care Everywhere program and may not contain all information available regarding this patient. Last updated 17.[facility] Allergies Active Allergy Reactions Criticality Noted Date Comments Penicillins Rash Medium 06/25/2011 Sulfa Drugs Rash Medium 06/25/2011 Medications * Be aware that medications may not be up to date on this document. Alwaysverify current medications with the patient. Medication Sig Dispensed Refills Start Date End Date Status ALPRAZolam (XANAX) 0.25 MG tablet TAKE 1 TABLET BY MOUTH TWICE DAILY NEEDED FOR STRESS 04/24/2021 Active Lactobacillus (ACIDOPHILUS) 100 MG Take 1 (one) capsule by mouth once daily Active ELIQUIS 5 MG tablet Take 1 (one) tablet by mouth once daily 07/11/2021 Active Biotin 1000 MCG Take 1 mg by mouth once daily Active cetirizine (ZYRTEC ALLERGY) 10 MG gel capsule Take 10 mg by mouth once daily Active Coenzyme Q10 400 MG Take 10 (ten) mg by mouth once daily Active Docusate Sodium (DSS) 100 MG Take 100 mg by mouth once daily Active esomeprazole (NEXIUM) 40 MG capsule Take 1 (one) capsule by mouth once daily 06/11/2021 Active fexofenadine-pseudoe phedrine ER 12hr (LAUREN-D) 60-120 MG tablet Take 1 tablet by mouth 2 times daily Active inositol 500 MG tablet Take 1 (one) tablet by mouth once daily Active levothyroxine (SYNTHROID) 50 MCG tablet Take 1 (one) tablet by mouth once daily 06/11/2021 Active Magnesium Oxide 250 MG Take 250 mg by mouth once daily Active Multiple Vitamins-Minerals (CENTRUM SILVER 50+WOMEN) TABS Take 1 tablet by mouth once daily Active Krill Oil 1000 MG Take 1 tablet by mouth once daily Active desoximetasone (Topicort-Lp) 0.05 % ointment APPLY TOPICALLY TO GROIN RASH DAILY NEEDED 10/04/2021 Active clobetasol (Temovate) 0.05 % solution APPLY TO SCALP AND EARS TWICE DAILY NEEDED 10/02/2021 Active metroNIDAZOLE (Flagyl) 500 MG tablet 07/02/2022 Active Saccharomyces boulardii (FLORASTOR PO) Active estradiol (Estrace) 0.1 MG/GM vaginal cream Insert 1 g into the vagina every other day as needed 42.5 g 3 01/02/2023 Active VESIcare 10 MG tablet Take 1 (one) tablet by mouth once daily 60 tablet 11 01/07/2023 Active Active Problems Problem Noted Date Diagnosed Date 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 Pyuria 06/07/2021 Allergic contact dermatitis 10/04/2011 Family History Medical History Relation Name Comments Cancer - Breast Maternal Grandmother Cancer-Breast Postmenopausal Maternal Grandmother Allergy (Severe) Neg Hx CVA Neg Hx Cancer Neg Hx Cancer - Skin, Melanoma Neg Hx Cancer - Skin, Non Melanoma Neg Hx Eczema Neg Hx Hemophilia Neg Hx Psoriasis Neg Hx Rashes/Skin Problems Neg Hx Relation Name Status Comments Maternal Grandmother Social History Tobacco Use Types Packs/Day Years Used Date Smoking Tobacco: Never Passive Smoke Exposure: Yes Smokeless Tobacco: Never Tobacco Cessation:Counseling Given: Not Answered Alcohol Use Standard Drinks/Week Comments Not Currently 0 (1 standard drink = 0.6 oz pur e alcohol) Sex and Gender Information Value Date Recorded Sex Assigned at Not on file Gender Identity Not on file Sexual Orientation Not on file Last Filed Vital Signs Vital Sign Reading Time Taken Comments Blood Pressure 126/61 07/04/2022 1:25 PM CDT Pulse 80 07/04/2022 1:25 PM CDT Temperature 36.4 C (97.5 F) 07/04/2022 1:25 PM CDT Respiratory Rate - - Oxygen Saturation 98% 07/04/2022 1:25 PM CDT Inhaled Oxygen Concentration - - Weight 54.4 kg (120 lb) 07/04/2022 1:25 PM CDT Height 157.5 cm (5' 2 ) 07/04/2022 1:25 PM CDT Body Mass Index 21.95 07/04/2022 1:25 PM CDT Plan of Treatment Health Maintenance Due Date Last Done Comments BONE DENSITY TESTING 1940 DTAP/TDAP/TD VACCINES (1 - Tdap) 10/26/1959 PNEUMOCOCCAL VACCINE 50+ (1 of 1 - PCV) 1990 ZOSTER VACCINE (1 of 2) 1990 Respiratory Syncytial Virus (RSV) Vaccine Pt: or over 60 yrs (1 - 1-dose 75+ series) 10/26/2015 COVID-19 VACCINE ( - 2023-2 5 season) 2023 INFLUENZA VACCINE (#1) 2023 01/05/2021 DEPRESSION SCREENING 03/24/2024 MEDICARE AWV CALENDAR YEAR 2024 HEPATITIS B VACCINE Aged Out No longe r eligible based on patient's age to complete this topic HIB VACCINE Aged Out No longer eligi ble based on patient's age to complete this topic HPV VACCINE Aged Out No longer eligi ble based on patient's age to complete this topic MENINGOCOCCAL (Group B) VACC INE SHARED DECISION-MAKING Aged Out No longer eligibl e based on patient's age to complete this topic MENINGOCOCCAL GROUPS A/C/Y/W VACCINE Aged Out No longer eligible b ased on patient's age to complete this topic Care Teams Process Technician Relationship Specialty Start Date End Date Louie Antonio MD [address] [place] [id number] PCP - General 07/23/21
--- OUTSIDE RECORDS SUMMARY | 2024-06-18 12:48 | XMS_ITS | Clinical Summary ---
Author Organization [facility] Address [address], [place] [address] Phone Care Team Providers Care Hide Grader Name Role Phone Louie Antonio MD Primary Care Provider [phone] Allergies Active Allergy Reactions Criticality Noted Date Comments Penicillins Rash,Unknown Low 06/25/2011 Sulfa Antibiotics 06/25/2011 Medications Medication Sig Dispensed Refills Start Date End Date Status VESIcare 10 MG tablet Take 10 mg by mouth 1 (one) time each day 05/15/2021 Active spironolactone (ALDACTONE) 25 MG tablet 05/14/2021 Active levothyroxine (SYNTHROID) 50 MCG tablet Take 50 mcg by mouth 1 (one) time each day 03/29/2021 Active Lactobacillus Acid-Pectin (Acidophilus/Pectin) capsule Take by mouth daily Activ e Ca Phosphate-Cholecalci ferol (Caltrate Gummy Bites) 250-400 MG-UNIT chewable tablet Caltrate Gummy Bites 250 mg-10 mcg (400 unit) chewable tablet 07/15/2017 Active Lactobacillus (Acidophilus) 0.5 MG tablet Acidophilus capsule 07/15/2017 Activ e Multiple Vitamins-Minerals (Centrum Silver 50+Women) tablet Centrum Silver Acti ve Coenzyme Q10 (CoQ10) 100 MG capsule CoQ10 Active Biotin 1 MG capsule biotin Activ e Multiple Vitamins-Minerals (OCUVITE ADULT 50+ PO) Ocuvite Adult 50 Plus Active CHOLINE BITARTRATE ER PO Take 648 mg by mouth Acti ve Fish Oil-Krill Oil (MEGARED ADVANCED 4 IN 1 PO) MegaRed [place]-3 Krill Oil 1,000 mg-230 mg-60 mg capsule 07/15/2017 Active Magnesium 400 MG capsule magnesium Active Inositol 324 MG tablet inositol Active ALPRAZolam (XANAX) 0.25 MG tablet TAKE 1 TABLET BY MOUTH TWICE DAILY NEEDED FOR STRESS 04/24/2021 Active Eliquis 5 MG tablet Take 5 mg by mouth 2 (two) times a day 05/16/2021 Active Cetirizine HCl (ZyrTEC ALLERGY) 10 MG capsule Zyrtec 10 mg capsule 07/15/2017 Acti ve esomeprazole (NexIUM) [address] capsule Take by mouth 1 (one) time each day 03/29/2021 Active Krill Oil 1000 MG capsule Take 1 tablet by mouth daily Active b complex vitamins capsule Take 1 capsule by mouth 1 (one) time each day Active Active Problems Problem Noted Date Diagnosed Date 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 Pyuria 06/07/2021 Immunizations Name Administration Dates Next Due Influenza TIV (IM) 01/05/2021 Pneumococcal Conjugate 11/22/2014 Social History Tobacco Use Types Packs/Day Years Used Date Smoking Tobacco: Never Smokeless Tobacco: Never Alcohol Use Standard Drinks/Week Comments Not Currently 0 (1 standard drink = 0.6 oz pur e alcohol) Sex and Gender Information Value Date Recorded Sex Assigned at Not on file Gender Identity Not on file Sexual Orientation Not on file Last Filed Vital Signs Vital Sign Reading Time Taken Comments Blood Pressure 118/70 12/10/2021 1:36 PM CDT Pulse 72 12/10/2021 1:36 PM CDT Temperature 36.7 C (98.1 F) 12/10/2021 1:36 PM CDT Respiratory Rate - - Oxygen Saturation - - Inhaled Oxygen Concentration - - Weight 60.3 kg (133 lb) 12/10/2021 1:36 PM CDT Height 157.5 cm (5' 2 ) 12/10/2021 1:36 PM CDT Body Mass Index 24.33 12/10/2021 1:36 PM CDT Plan of Treatment Health Maintenance Due Date Last Done Comments Pneumococcal PPSV23/PCV13 65 + Years / High and Highest Risk (1 of 4 - PCV) 1946 Influenza Vaccine (#1) 2023 01/05/2021 Care Teams Hide Grader Relationship Specialty Start Date End Date Louie Antonio MD [address] [place] [id number] PCP - General Internal Medicine 05/01/21
--- OUTSIDE RECORDS SUMMARY | 2024-06-18 12:49 | XMS_ITS | Continuity of Care Document ---
Author Organization [facility] Address [address] [place] [address] Phone Care Team Providers Care At Risk Paraprofessional Name Role Phone No Information Unavailable Unavailable Medications Medication Instructions Dosage Effective Dates (start - stop) Status Comments No Drug Therapy Prescribed Advance Directives Directive Yes / No Effective Date File Name No Information Encounters Encounter Description Practice Location Reason(s) For Visit Diagnoses Date Provider Providers Copied on Encounter [facility], [address] [place] [address], [id number], tel:[phone] No Information No Information Family History Family Member Type Diagnosis Age At Onset No Information Payers Payer name Insurance type Covered green party ID Authoriza tion(s) No Information Social History Type Description Quantity Date Captured Comments Sex Female Smoking Status No Information Chief Complaint And Reason For Visit No Information History Of Present Illness Encounter Date Complaint History Of Prese nt Illness No Information Medications Administered Medication Instructions Dosage Effective Dates (start - stop) Status Comments No Drug Therapy Prescribed Instructions Date Instruction Additional Infor mation No Information Assessments Type Assessment Date No Information
--- OUTSIDE RECORDS SUMMARY | 2024-06-18 12:49 | XMS_ITS | Continuity of Care Document ---
Author Organization [facility] Address [address] [place] [address] Phone Care Team Providers Care Indian Nanny Name Role Phone Castanon OD, Wilder Unavailable Unavailable Procedures Procedure Date Eye Exam & Treatment Refraction Eye Exam Established Pt Eye Exam & Treatment No Script Refraction Eye Exam & Treatment No Charge Glasses Check Eye Exam & Treatment Refraction Advance Directives Directive Yes / No Effective Date File Name No Information Encounters Encounter Description Practice Location Reason(s) For Visit Diagnoses Date Provider Providers Copied on Encounter [facility], [address] [place] [address] [address], [place], [place], [id number], [place] tel:[phone] [facility] No Information 9-201 0 Castanon OD Wilder. [address], [place], [place], [facility], [place]. tel:[phone] [facility], [address] [place] [address] [address], [place], [place], [id number], [place] tel:[phone] [facility] No Information 8-201 0 Castanon OD Wilder. [address] , [address], [place], [address], [place]. tel:[phone] [facility], [address] [place] [address] [address], [place], [place], [id number], tel:[phone] [facility] No Information Sep-2 5-200 9 Castanon OD Wilder. [address] , [address], [place], [address], [place]. tel:[phone] [facility], [address], [place], [place], [id number], tel:[phone] [facility] No Information Sep-1 1-200 8 Castanon OD Wilder. [address] , [address], [place], [address], [place]. tel:[phone] [facility], [address], [place], [place], [id number], tel:[phone] [facility] No Information Davy-1 1-200 7 W[place]um Byron. [address] [facility] [place], [id number], . tel:[phone] [facility], [address] [place] [address] [address], [place], [place], [id number], tel:[phone] [facility] No Information May-0 7-200 7 W[place]um Byron. [address] [facility], [place], [place], [id number], . tel:[phone] Family History Family Member Type Diagnosis Age At Onset No Information Payers Payer name Insurance type Covered republican ID Authoriza tieric(s) [place] [id number] Social History Type Description Quantity Date Captured Comments Sex Female Smoking Status No Information Chief Complaint And Reason For Visit No Information Reason For Referral Reason For Referral No Information History Of Present Illness Encounter Date Complaint History Of Prese nt Illness No Information Functional Status Date Functional Assessmen t No Information Instructions Date Instruction Additional Infor mation No Information Assessments Type Assessment Date No Information Patient Care Teams Name Effective Dates (start - stop) Status Members No Information
--- OUTSIDE RECORDS SUMMARY | 2024-06-18 12:49 | XMS_ITS | Data Portability ---
Author Organization [facility] [place] Address [address] [place] [address] [place] [address] Care Team Providers Care Candles Pourer Name Role Phone PAUL DIAZ Primary Care Provider [phone] Assessment Encounter Date Assessment Date Assessment LastModified by Organization Details LastModified Time 11/02/2019 11/02/2019 Annual gynecological exam performed. Patient will come back in a year unless there are new symptoms. [email or web address] Not available 11/02/2019 10:25:44 11/09/2020 11/09/2020 Annual gynecological exam performed. Patient will come back in a year unless there are new symptoms. Not available 11/09/2020 11:49:14 11/19/2021 11/19/2021 Unbillable Not seen Not due for WWE b/c has medicare/medicai d plan. [email or web address] Not available 11/21/2021 11:57:04 Plan of Treatment Reminders Order Date Submit Date Provider Last Modified By Organization Details Last Modified Time Details Appointments None recorded. Lab urinalysis , dipstick 2024 025 [email or web address], [address], [place], [address], 11:20:21 CMP, serum or plasma 2020 021 [facility] (Lab), [address], [place], [address], 04:43:55 HbA1c (hemoglobi n A1c), blood 2020 021 [facility] (Lab), [address], [place], [address], 1 04:43:57 vitamin D, 25-hydroxy , total, serum 2020 [facility] (Lab), [address], [place], [address], 04:43:56 CBC w/ auto diff 2020 [facility] (Lab), [address], [place], [address], 04:43:54 lipid panel, blood 2020 [facility] (Lab), [address], [place], [address], 04:43:55 TSH, serum or plasma 2020 021 [facility] (Lab), [address], [place], [address], 1 04:43:56 Referral None recorded. Procedures None recorded. Surgeries None recorded. Imaging None recorded. Medication Orders Macrobid 100 mg capsule 2024 025 [place] [email or web address][id number], [address], [place], [place], [id number], 5 10:56:27 Proctozone -HC 2.5 % topical cream perineal applicator 2020 021 [place] [id number], [address], [place], [place], [id number], 1 12:28:54 Anusol-HC 2.5 % topical cream with perineal applicator 2020 [facility]21 [id number], [address], [place], [id number], 1 12:28:53 Synthroid 50 mcg tablet 2019 020 [facility] #[id number], [address], [place], [place], [id number], 0 13:35:11 Patient TargetsNo targets recorded. Patient Instructions Encounter Date Encounter Id Patient Instructions Last Modified By Organization Details Last Modified Time 11/02/2019 [id number] [email or web address] Not available 13:31:25 Reason for Referral None Reported. Results Created Date Observation Date Name Description Value Unit Range Abnormal Flag Note LastModifiedBy Organization Detail LastModifiedTime 11/11/1911/10/2020 CBC W/DIF F WBC 6.4 10'3/ uL 3.6-10 .2 Not Available [facility] (Lab) [address], [place], [address], 11/11/2020 04:43:54 11/11/19 21 11/10/2020 CBC W/DIF F RBC 4.30 10'6/ uL (based on docume nted legal sex) 4.10-5 .30 Not Available [facility] (Lab) [address], [place], [address], 11/11/2020 04:43:54 11/11/19 21 11/10/2020 CBC W/DIF F HGB 13.1 g/dL (based on docume nted legal sex) 11.9-1 5.8 Not Available [facility] (Lab) [address], [place], [address], 11/11/2020 04:43:54 11/11/1911/10/2020 CBC W/DIF F HCT 42.1 % (based on docume nted legal sex) 37.4-4 8.3 Not Available [facility] (Lab) [address] [place], [address], 11/11/2020 04:43:54 11/11/19 21 11/10/2020 CBC W/DIF F MCV 98.0 fL 82.0-9 9.0 Not Available [facility] (Lab) [address], [place], [address], 11/11/2020 04:43:54 11/11/19 21 11/10/2020 CBC W/DIF F MCH 31.0 pg 27.0-3 3.0 Not Available [facility] (Lab) [address], [place], [address], 11/11/2020 04:43:54 11/11/19 21 11/10/2020 CBC W/DIF F MCHC 31.0 g/dL 32.0-3 6.0 low Not Available [facility] (Lab) [address], [place], [address], 11/11/2020 04:43:54 11/11/19 21 11/10/2020 CBC W/DIF F RDW 13.0 % 11.0-1 5.0 Not Available [facility] (Lab) [address], [place], [address], 11/11/2020 04:43:54 11/11/19 21 11/10/2020 CBC W/DIF F plt 192 10'3/ uL 150-45 0 Not Available [facility] (Lab) [address], [place], [address], 11/11/2020 04:43:54 11/11/19 21 11/10/2020 CBC W/DIF F MPV 11.6 fL 9.8-12 .7 Not Available [facility] (Lab) [address], [place], [address], 11/11/2020 04:43:54 11/11/19 21 11/10/2020 CBC W/DIF F NRBC's 0.00 % 0 Not Available [facility] (Lab) [address] [place], [address], 11/11/2020 04:43:54 11/11/19 21 11/10/2020 CBC W/DIF F absolute NRBCs 0.0 10'3/ uL 0 Not Available [facility] (Lab) [address], [place], [address], 11/11/2020 04:43:54 11/11/19 21 11/10/2020 CBC W/DIF F neutrophils 42.0 % 37.0-7 2.0 Not Available [facility] (Lab) [address], [place], [address], 11/11/2020 04:43:54 11/11/19 21 11/10/2020 CBC W/DIF F lymphocytes 44.0 % 16.0-4 8.0 Not Available [facility] (Lab) [address], [place], [address], 11/11/2020 04:43:54 11/11/19 21 11/10/2020 CBC W/DIF F monocytes 10.0 % 4.0-14 .0 Not Available [facility] (Lab) [address], [place], [address], 11/11/2020 04:43:54 11/11/19 21 11/10/2020 CBC W/DIF F eosinophils 3.0 % 0.0-9. 0 Not Available [facility] (Lab) [address], [place], [address], 11/11/2020 04:43:54 11/11/19 21 11/10/2020 CBC W/DIF F basophils 1.0 % 0.0-2. 0 Not Available [facility] (Lab) [address], [place], [address], 11/11/2020 04:43:54 11/11/19 21 11/10/2020 CBC W/DIF F immature granulocytes 0.0 % no define d refere nce range Not Available [facility] (Lab) [address] [place], [address], 11/11/2020 04:43:54 11/11/19 21 11/10/2020 CBC W/DIF F absolute neutrophils 2.7 10'3/ uL 1.1-6. 0 Not Available [facility] (Lab) [address], [place], [address], 11/11/2020 04:43:54 11/11/19 21 11/10/2020 CBC W/DIF F absolute lymphocytes 2.8 10'3/ uL 0.7-3. 4 Not Available [facility] (Lab) [address], [place], [address], 11/11/2020 04:43:54 11/11/19 21 11/10/2020 CBC W/DIF F absolute monocytes 0.7 10'3/ uL 0.3-1. 0 Not Available [facility] (Lab) [address], [place], [address], 11/11/2020 04:43:54 11/11/19 21 11/10/2020 CBC W/DIF F absolute eosinophils 0.2 10'3/ uL 0.0-0. 6 Not Available [facility] (Lab) [address], [place], [address], 11/11/2020 04:43:54 11/11/19 21 11/10/2020 CBC W/DIF F absolute basophils 0.1 10'3/ uL 0.0-0. 1 Not Available [facility] (Lab) [address], [place], [address], 11/11/2020 04:43:54 11/11/19 21 11/10/2020 CBC W/DIF F absolute immature granulocytes 0.00 10'3/ uL 0.00-0 .10 2020 1:42 AM: P indic ates parti al resul ts on a panel have been relea sed. Addit ional resul ts will follo w. 2020 1:42 AM: This resul t has been final verif ied. No addit ional or eid ed resul ts are expec yas. Not Available [facility] (Lab) [address] [place], [address], 11/11/2020 04:43:54 11/11/19 21 11/10/2020 LIPID PANEL ,AMA (LDL- CALC) total cholesterol 172 mg/dL 0-199 Not Available [facility] (Lab) [address] [place], [address], 11/11/2020 04:43:55 11/11/19 21 11/10/2020 LIPID PANEL ,AMA (LDL- CALC) triglyceride s 91 mg/dL 0.00-1 50.00 NCEP Refer ence Value s for Trigl yceri nita: Kristi l: <150 mg/dL Borde rline High: 150 - 199 mg/dL High: 200 - 499 mg/dL Very High: >/= 500 mg/dL Not Available [facility] (Lab) [address] [place], [address], 11/11/2020 04:43:55 11/11/19 21 11/10/2020 LIPID PANEL ,AMA (LDL- CALC) HDL cholesterol 53 mg/dL 23-92 Not Available [facility] (Lab) [address] [place], [address], 11/11/2020 04:43:55 11/11/19 21 11/10/2020 LIPID PANEL ,AMA (LDL- CALC) LDL cholesterol 101 mg/dL 0-99 high Cutof f value s recom oscar d by the Natreuben nal Simran stero l Educa tion Progr am: MACO ABLE: Simran stero l <200 mg/dL LDL <100 mg/dL BORDE RLINE : Simran stero l 200-2 39 mg/dL LDL 101-1 59 mg/dL HIGHE R RISK: Simran stero l >240 mg/dL LDL >160 mg/dL , HDL <40 mg/dL Not Available [facility] (Lab) [address] [place], [address], 11/11/2020 04:43:55 11/11/19 21 11/10/2020 LIPID PANEL ,AMA (LDL- CALC) non-HDL cholesterol 119 mg/dL no refere nce range A reaso nable goal for non-H DL simran stero l is one that is 30 mg/dL highe r than the LDL simran stero l goal. Not Available [facility] (Lab) [address], [place], [address], 11/11/2020 04:43:55 11/11/19 21 11/10/2020 LIPID PANEL ,AMA (LDL- CALC) chol/HDL ratio 3.2 . 0.0-5. 0 Not Available [facility] (Lab) [address] [place], [address], 11/11/2020 04:43:55 11/11/19 21 11/10/2020 CMP(C OMPRE HENSI VE METAB OLIC PANEL ) sodium 142 mmol/ L 136-14 5 Not Available [facility] (Lab) [address], [place], [address], 11/11/2020 04:43:55 11/11/19 21 11/10/2020 CMP(C OMPRE HENSI VE METAB OLIC PANEL ) potassium 3.9 mmol/ L 3.5-5. 1 Not Available [facility] (Lab) [address] [place], [address], 11/11/2020 04:43:55 11/11/19 21 11/10/2020 CMP(C OMPRE HENSI VE METAB OLIC PANEL ) chloride 107 mmol/ L 98-107 Not Available [facility] (Lab) [address] [place], [address], 11/11/2020 04:43:55 11/11/19 21 11/10/2020 CMP(C OMPRE HENSI VE METAB OLIC PANEL ) carbon dioxide 27 mmol/ L 21-31 Not Available [facility] (Lab) [address] [place], [address], 11/11/2020 04:43:55 11/11/19 21 11/10/2020 CMP(C OMPRE HENSI VE METAB OLIC PANEL ) anion gap 8 mmol/ L 4-13 Not Available [facility] (Lab) [address], [place], [address], 11/11/2020 04:43:55 11/11/19 21 11/10/2020 CMP(C OMPRE HENSI VE METAB OLIC PANEL ) blood urea nitrogen 10 mg/dL 7-25 Not Available [facility] (Lab) [address], [place], [address], 11/11/2020 04:43:55 11/11/19 21 11/10/2020 CMP(C OMPRE HENSI VE METAB OLIC PANEL ) creatinine 0.82 mg/dL 0.60-1 .30 Not Available [facility] (Lab) [address], [place], [address], 11/11/2020 04:43:55 11/11/19 21 11/10/2020 CMP(C OMPRE HENSI VE METAB OLIC PANEL ) GFR () 81 mL/mi n/1.7 3_m2 60-300 Not Available [facility] (Lab) [address], [place], [address], 11/11/2020 04:43:55 11/11/19 21 11/10/2020 CMP(C OMPRE HENSI VE METAB OLIC PANEL ) GFR (others) 67 mL/mi n/1.7 3_m2 60-300 Not Available [facility] (Lab) [address] [place], [address], 11/11/2020 04:43:55 11/11/19 21 11/10/2020 CMP(C OMPRE HENSI VE METAB OLIC PANEL ) calcium 9.9 mg/dL 8.6-10 .2 Not Available [facility] (Lab) [address] [place], [address], 11/11/2020 04:43:55 11/11/19 21 11/10/2020 CMP(C OMPRE HENSI VE METAB OLIC PANEL ) glucose 88 mg/dL 70-100 Not Available [facility] (Lab) [address], [place], [address], 11/11/2020 04:43:55 11/11/19 21 11/10/2020 CMP(C OMPRE HENSI VE METAB OLIC PANEL ) protein, total 6.5 g/dL 6.4-8. 3 Not Available [facility] (Lab) [address], [place], [address], 11/11/2020 04:43:55 11/11/19 21 11/10/2020 CMP(C OMPRE HENSI VE METAB OLIC PANEL ) albumin 3.7 g/dL 3.5-5. 0 Not Available [facility] (Lab) [address], [place], [address], 11/11/2020 04:43:55 11/11/19 21 11/10/2020 CMP(C OMPRE HENSI VE METAB OLIC PANEL ) ALT 15 units /L 9-43 Not Available [facility] (Lab) [address], [place], [address], 11/11/2020 04:43:55 11/11/19 21 11/10/2020 CMP(C OMPRE HENSI VE METAB OLIC PANEL ) alkaline phosphatase 60 units /L 34-104 Not Available [facility] (Lab) [address], [place], [address], 11/11/2020 04:43:55 11/11/19 21 11/10/2020 CMP(C OMPRE HENSI VE METAB OLIC PANEL ) AST 20 units /L 13-39 Not Available [facility] (Lab) [address], [place], [address], 11/11/2020 04:43:55 11/11/19 21 11/10/2020 CMP(C OMPRE HENSI VE METAB OLIC PANEL ) bilirubin, total 0.5 mg/dL 0.2-1. 2 GFR([place] f[place] n Amer[place] can) is repor yas as 21% great er than GFR(O ther) . The use of race in kidne y funct ion estim ating equat ions is no longe r recom oscar d and may resul t in overe stima tion. In the near futur e an appro ach that disre tara race will be imple mente d. Not Available [facility] (Lab) [address], [place], [address], 11/11/2020 04:43:55 11/11/19 21 11/10/2020 TSH, REFLE X FREE T4 TSH 3.20 uIU/m L 0.30-5 .33 Not Available [facility] (Lab) [address], [place], [address], 11/11/2020 04:43:56 11/11/19 21 11/10/2020 VITAM IN D, 25-OH (TOTA L D2/D3 ) vitamin D, 25-hydroxy, total 65.2 NG/mL 30-80 NOTE: Defic iency : <20 ng/mL Insuf ficie ncy: 20-29 ng/mL Optim um Level : 30-80 ng/mL Possi ble Toxic ity: >80 ng/mL Most patie nts with toxic ity have level s >150 ng/mL . Not Available [facility] (Lab) [address], [place], [address], 11/11/2020 04:43:56 11/11/19 21 11/10/2020 HEMOG LOBIN A1C hemoglobin A1C 5.2 % 0-5.6 The Ameri can Diabe joel Assoc iatio n recom mends that a prima ry goal of thera py shoul d be a HBA1C of < 7% and that physi cians shoul d reeva luate the treat ment regim en in patie nts with HBA1C value s consi stent ly > 8%. <5.7% Kristi l 5.7 - 6.4% Incre ased risk for diabe joel >=6.5 % Diagn ostic of diabe joel <7.0% Goal of thera py >8.0% Actreuben adan Not Available [facility] (Lab) [address], [place], [address], 11/11/2020 04:43:57 05/18/19 25 05/18/2024 CULTU RE: URINE result report SEE RESULT S BELOW abnormal Test: Cultu re: Urine Speci men Sourc e: Urine - Clean Catch Speci men Type: Urine Speci men Date: 2024 1414 Resul t Date: 2024 2253 Resul t Statu s: Final resul t Shanelleor mal: Yes Resul jennifer Lab: [facility] [address] [facility] [address] Tel: CULTU RE ----- ----- ----- --- >100, 000 CFU/m l Provi denci a rettg dora (Abno rmal) SUSCE PTIBI LITY ----- ----- ----- --- Provi denci a rettg dora METHO D VINNIE ----- ----- ----- ----- ----- ---- ----- ----- ----- ----- ----- AMPIC ILLIN /SULB ACTAM <=8 ug/mL Susce ptibl e AZTRE ONAM 16 ug/mL Resis tant CEFAZ PASTORA >16 ug/mL Resis tant CEFEP KENYA <=2 ug/mL Susce ptibl e CEFTR IAXON E <=1 ug/mL Susce ptibl e CIPRO FLOXA BROOK <=0.2 5 ug/mL Susce ptibl e GENTA MICIN <=2 ug/mL Susce ptibl e LEVOF LOXAC IN <=0.5 ug/mL Susce ptibl e MEROP ENEM <=1 ug/mL Susce ptibl e NITRO FURAN TOIN >64 ug/mL Resis tant PIPER ACILL IN/TA ZOBAC HARRIS <=8 ug/mL Susce ptibl e TOBRA MYCIN <=2 ug/mL Susce ptibl e TRIME THOPR IM/SULLIVAN LFAME THOXA ZOLE <=2 ug/mL Susce ptibl e Not Available [facility] (Lab) [address], [place], [address], 05/20/2024 23:56:39 05/18/1905/18/2024 urina lysis , dipst ick Leukocytes +++ Not Available [facility] [address], [place], [address], 05/18/2024 11:19:15 05/18/1905/18/2024 urina lysis , dipst ick Nitrite ++ Not Available [place] [address], [place], [address], 05/18/2024 11:19:15 05/18/19 25 05/18/2024 urina lysis , dipst ick Protein ++ Not Available [place] [address], [place], [address], 05/18/2024 11:19:15 05/18/19 25 05/18/2024 urina lysis , dipst ick pH 7 Not Available [place] [address], [place], [address], 05/18/2024 11:19:15 05/18/1905/18/2024 urina lysis , dipst ick Blood +++ Not Available [place] [address], [place], [address], 05/18/2024 11:19:15 05/18/19 25 05/18/2024 urina lysis , dipst ick Specific Deale 1.015 Not Available [facility] [address], [place], [address], 05/18/2024 11:19:15 05/18/19 25 05/18/2024 urina lysis , dipst ick Appearance cloudy Not Available [facility] [address], [place], [address], 05/18/2024 11:19:15 05/18/19 25 05/18/2024 urina lysis , dipst ick Color brown Not Available [place] [address], [place], [address], 05/18/2024 11:19:15 12/10/19 20 12/10/2019 MAMMO , scree jina, bilat eral No observ ation record ed. [facility] [address], [place], [address], 12/13/2019 20:26:33 01/14/20 21 01/13/2021 MAMMO , scree jina, bilat eral No observ ation record ed. [facility] [address], [place], [address], 01/15/2021 10:35:17 01/16/20 21 01/13/2021 DEXA, axial skele ton + verte bral fract ure asses sment No observ ation record ed. [email or web address] [facility] [address], [place], [address], 01/16/2021 16:05:31 01/30/20 22 01/29/2022 MAMMO , scree jina, bilat eral No observ ation record ed. [email or web address] [facility] [address], [place], [address], 10/17/2022 10:51:29 Result Notes None recorded. Problems Name Problem SNOMED Code Status Onset Date Resolution Date Notes Provider Name and Address Organization Details Recorded Time Adult health examinat ion Completed 201411/09/2020 Routine general medical examinati on at a health care facility; Practice ID: 0001 Trudy garcia [facility] 11:21:18 Speciali zed medical examinat ion Completed 201411/09/2020 Routine gynecolog ical examinati on;Practi ce ID: 0001 Trudy garcia [facility] 11:21:42 Screenin g for malignan t neoplasm of rectum Completed 201411/09/2020 Screening for malignant neoplasms of the rectum;Pr actice ID: 0001 Trudy garcia [facility] 11:21:37 Finding of sensatio n of breast Completed 201511/09/2020 Mastodyni a;Practic e ID: 0001 Trudy garcia [facility] 11:21:24 Blood leukocyt e number above referenc e range [id number] Completed 201511/09/2020 Elevated white blood cell count, unspecifi ed;Practi ce ID: 0001 Trudy garcia [facility] 11:21:[address] Concept Completed 201511/09/2020 Encntr for podiatric medicine professor exam (general) (routine) w/o abn findings; Practice ID: 0001 Trudy garcia [facility] 11:21:[address] Concept Completed 201711/09/2020 Encntr for general adult medical exam w/o abnormal findings; Practice ID: 0001 Trudy garcia [facility] 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 1 11:21:26 Screenin g for malignan t neoplasm of cervix Completed 201011/09/2020 Screening for malignant neoplasms of the cervix;Re corded Elsewhere : No Locati on: [facility] So urce: EHR Chron ic: N Practic e ID: 0001 Bill able Time: 01:45:00 PM Trudy Alexis [facility] 11:21:35 Body mass index 25-29 - overweig ht [id number] Completed 201511/09/2020 Body mass index (BMI) 29.0-29.9 , adult;Rec orded Elsewhere : No Locati on: [facility] So urce: EHR Chron ic: N Practic e ID: 0001 Bill able Time: 01:30:00 PM [facility] 11:21:20 Female genital organ symptoms [id number] Completed 201011/09/2020 Unspecifi ed symptom associate d with female genital organs;Re corded Elsewhere : No Locati on: [facility] So urce: EHR Chron ic: N Practic e ID: 0001 Bill able Time: 02:15:00 PM [facility] 11:21:23 Vaginiti s and vulvovag initis Completed 201011/09/2020 Vaginitis ;Recorded Elsewhere : No Locati on: [facility] So urce: EHR Chron ic: N Practic e ID: 0001 Bill able Time: 02:15:00 PM [facility] 11:21:43 Body mass index 30+ - obesity [id number] Completed 201711/09/2020 Body mass index (BMI) 31.0-31.9 , adult;Rec orded Elsewhere : No Locati on: [facility] So urce: EHR Chron ic: N Practic e ID: 0001 Bill able Time: 11:30:00 AM [facility] 11:21:21 Obesity [id number] Completed 201311/09/2020 Obesity;R ecorded Elsewhere : No Locati on: [facility] So urce: EHR Chron ic: Y Practic e ID: 0001 Bill able Time: 11:30:00 AM Trudy Alexis [facility] 11:21:32 Mammogra phy abnormal [id number] Completed 201411/09/2020 Unspecifi ed abnormal mammogram ;Recorded Elsewhere : No Locati on: [facility] So urce: EHR Chron ic: N Practic e ID: 0001 Bill able Time: 11:30:00 AM Trudy Alexis [facility] 11:21:30 Postmeno pausal bleeding [id number] Completed 201211/09/2020 Postmenop ausal bleeding; Practice ID: 0001 Trudy [facility] 11:21:34 Problem Notes None recorded. Procedures Surgical History Date Name Laterality Status Provider Name and Address Organization Details Recorded Time 01/30/20 22 Date of Last Mammogram completed Mari Patel [facility] 05/18/2024 10:49:06 07/23/19 19 completed [facility] 11/09/2020 11:51:26 03/24/19 12 Colonoscopy completed [facility] 11/09/2020 11:54:26 03/24/19 00 procedure on back completed [facility] 11/09/2020 11:54:44 03/24/18 98 procedure on urinary bladder completed [facility] 11/09/2020 11:54:13 03/24/18 81 Partial hysterectomy completed Trudyreyes Alexis [facility] 11/09/2020 11:53:57 03/24/18 71 hernia repair completed Trudyreyes Alexis [facility] 11/09/2020 11:54:20 extracorporeal kidney completed Shasha Ammon [facility] 11/01/2019 17:00:27 Imaging Results Imaging Date Name Status LastModified by Organiz ation Details LastModified Time 12/10/2019 MAMMO, screening, bilateral completed [facility] [address], [place], [address], 12/13/2019 20:26:33 01/13/2021 MAMMO, screening, bilateral completed [facility] [address], [place], [address], 01/15/2021 10:35:17 01/13/2021 DEXA, axial skeleton + [facility] [address], [place], [address], 01/16/2021 16:05:31 01/29/2022 MAMMO, screening, bilateral completed [address] [facility] [address], [place], [address], 10/17/2022 10:51:29 Procedure Notes None recorded. Medical Equipment None Reported. Allergies Allergen ID Allergen Name Allergen Category Reaction Reaction Severity Criticality Documentation Date Start Date Code Code System Note Provider Name and Address Organization Details Recorded Time 1651 Product containin g penicilli n (product) medicatio n Not available Not available Not available 11/01/2019 13955 8001 SNOMED Shasha garcia [facility] 0 16:57:12 1652 Substance with sulfonami de structure and antibacte rial mechanism of action (substanc e) medicatio n Not available Not available Not available 11/01/2019 47483 8003 SNOMED Shasha garcia [facility] 0 16:57:16 15784 peanut allergeni c extract food,medi cation Not available Not available Not available 05/18/2024 07897 8 RxNorm Sachi Juan J, [facility] [address], [place], [address], [facility] 5 11:01:20 Medications Name Sig Start Date Stop Date Status Note LastModified by Organization Details LastModified Time nyst/dexa /acet/tet ra/m-dryl susp SWISH AND SWALLOW 5 ML BY MOUTH FOUR TIMES DAILY active Not Available Not Available No t Available nitrofura ntoin macrocrys eliecer 50 mg capsule TK 1 C PO HS 10/20 completed Not Available Not Available Not Available doxycycli ne hyclate 100 mg capsule TAKE 1 CAPSULE BY MOUTH TWICE DAILY FOR 10 DAYS active Not Available Not Available No t Available Centrum Silver tablet 2010 active Prescrib ed Elsewher e: No Locat ion: [facility] odify By: wmhampso n Encoun ter DateTime : 01/16/20 11 01:45:00 PM Not Available Not Available Not Available clindamyc in HCl 300 mg capsule TAKE 1 CAPSULE BY MOUTH EVERY 8 HOURS 10/20 completed Not Available Not Available Not Available evening primrose oil 500 mg capsule tad 04/17 completed Prescrib ed Elsewher e: No Locat ion: [facility] odify By: tgingric h Encoun ter DateTime : 04/17/19 16 11:45:00 AM Not Available Not Available Not Available azithromy brook 250 mg tablet TAKE 1 TABLET BY MOUTH DAILY UNTIL GONE active Not Available Not Available No t Available fosfomyci n trometham ine 3 gram oral packet MIX 1 PACKET IN HALF A CUP OF COOL WATER AND DRINK ONCE active Not Available Not Available No t Available fluconazo le 150 mg tablet TAKE 1 TABLET BY MOUTH EVERY DAY FOR 7 DAYS 10/20 completed Not Available Not Available Not Available metronida zole 0.75 % (37.5 mg/5 gram) vaginal gel INSERT 1 APPLICAT ORFUL VAGINALL Y TWICE DAILY FOR 5 DAYS active Not Available Not Available No t Available Locoid Lipocream 0.1 % topical apply by topical route 2 times every day a thin layer to the affected area(s) active Prescrib ed Elsewher e: Yes Loca tion: [facility] odify By: jil Manzano ter DateTime : 01/16/20 11 01:45:00 PM Not Available Not Available Not Available Anucort-H C 25 mg supposito ry May insert 1 rectal supps BID PRN for max of 14 consecut fernando days. active Not Available Not Available No t Available Protonix 20 mg tablet,de layed release take 2 tablet by oral route every day active Prescrib ed Elsewher e: Yes Loca tion: [facility] odify By: agata Pinzon nter DateTime : 09/17/19 13 03:45:00 PM Not Available Not Available Not Available Flonase 50 mcg/actua tion nasal spray,kleber pension spray 1 spray by intranas al route every day in each nostril active Prescrib ed Elsewher e: Yes Loca tion: [facility] odify By: jil Manzano ter DateTime : 01/16/20 11 01:45:00 PM Not Available Not Available Not Available trimethop rim 100 mg tablet TK 1 T PO HS active Not Available Not Available No t Available ciproflox acin 500 mg tablet TAKE 1 TABLET BY MOUTH EVERY 12 HOURS FOR 10 DAYS 10/20 completed Not Available Not Available Not Available triamcino lone acetonide 0.1 % topical cream APPLY TOPICALL Y TO THE AFFECTED AREA TWICE DAILY NEEDED FOR RASH TO THE AFFECTED AREA SCATTERE D TO BODY active Not Available Not Available No t Available spironola ctone 25 mg tablet active Not Available Not Available No t Available Nexium 20 mg capsule,d elayed release take 1 capsule by oral route every day 2017 active Prescrib ed Elsewher e: Yes Loca tion: [facility] odify By: luis Osorio ncounter DateTime : 07/16/19 18 11:30:00 AM Not Available Not Available Not Available Macrobid 100 mg capsule Take 1 capsule every 12 hours by oral route for 7 days. 05/21 completed Not Available Not Available Not Available ciclopiro x 8 % topical solution 11/01 completed Not Available Not Available Not Available hydrocort isone 2.5 % topical cream with perineal applicato r APPLY TOPICALL Y TO THE AFFECTED AREA TWICE DAILY NEEDED FOR HEMORRHO IDS active Not Available Not Available No t Available alprazola m 0.25 mg tablet TAKE 1 TABLET BY MOUTH TWICE DAILY NEEDED FOR ANXIETY active Not Available Not Available No t Available levothyro xine 50 mcg tablet TAKE 1 TABLET BY MOUTH EVERY DAY active Not Available Not Available No t Available cephalexi n 500 mg capsule TAKE 1 CAPSULE BY MOUTH EVERY 12 HOURS FOR 7 DAYS 10/20 completed Not Available Not Available Not Available esomepraz ole magnesium 40 mg capsule,d elayed release TAKE 1 CAPSULE BY MOUTH EVERY DAY active Not Available Not Available No t Available Aquaphor topical ointment 2010 active Prescrib ed Elsewher e: No Locat ion: [facility] odify By: darrylo n Jose Juan samaniego DateTime : 01/16/20 11 01:45:00 PM Not Available Not Available Not Available Calcium-6 00 600 mg (as calcium carbonate 1,500 mg) tablet 2017 active Prescrib ed Elsewher e: Yes Loca tion: [facility] odify By: amzhane finch DateTime : 07/16/19 18 11:30:00 AM Not Available Not Available Not Available midodrine 2.5 mg tablet active Not Available Not Available Not Available Estrace 0.5 mg tablet take 1 tablet (0.5MG) by oral route every day 07/10 completed Prescrib ed Elsewher e: No Locat ion: [facility] odify By: amzhane solisunter DateTime : 06/22/19 14 11:30:00 AM Not Available Not Available Not Available cefuroxim e axetil 500 mg tablet TAKE 1 TABLET BY MOUTH EVERY 12 HOURS FOR 10 DAYS active Not Available Not Available No t Available levofloxa brook 500 mg tablet TAKE 1 TABLET BY MOUTH EVERY DAY FOR 10 DAYS active Not Available Not Available No t Available estradiol 0.01% (0.1 mg/gram) vaginal cream INSERT 1 GRAM VAGINALL Y EVERY OTHER DAY NEEDED active Not Available Not Available No t Available hydrocort isone 2.5 % topical ointment APPLY TOPICALL Y TO THE AFFECTED AREA EVERY NIGHT AT BEDTIME FOR UP TO 2 WEEKS active Not Available Not Available No t Available Paxil 10 mg tablet take 1 tablet by oral route every day 07/15 completed Prescrib ed Elsewher e: No Locat ion: [facility] odify By: luis finch DateTime : 07/06/19 15 11:30:00 AM Not Available Not Available Not Available clobetaso l 0.05 % scalp solution APPLY THIN LAYER TOPICALL Y TO THE SCALP DAILY NEEDED FOR RASH active Not Available Not Available No t Available cefdinir 300 mg capsule TK 1 C PO BID 10/20 completed Not Available Not Available Not Available magnesium 30 mg tablet 2017 active Prescrib ed Elsewher e: Yes Loca tion: [facility] odify By: luis finch DateTime : 07/16/19 18 11:30:00 AM Not Available Not Available Not Available Xanax 1 mg tablet take 1 tablet by oral route 3 times every day active Prescrib ed Elsewher e: Yes Loca tion: [facility] odify By: agata holland DateTime : 09/17/19 13 03:45:00 PM Not Available Not Available Not Available Co Q-10 10 mg capsule 2017 active Prescrib ed Elsewher e: Yes Loca tion: [facility] odify By: luis finch DateTime : 07/16/19 18 11:30:00 AM Not Available Not Available Not Available Acidophil us capsule 2017 active Prescrib ed Elsewher e: Yes Loca tion: [facility] odify By: luis finch DateTime : 07/16/19 18 11:30:00 AM Not Available Not Available Not Available Premarin 0.625 mg/gram vaginal cream insert by vaginal route every day cyclical ly, 3 weeks on and 1 week off 2018 active Prescrib ed Elsewher e: Yes Loca tion: [facility] odify By: luis finhc DateTime : 07/23/19 10:00:00 AM Not Available Not Available Not Available trospium 20 mg tablet 11/01 completed Not Available Not Available Not Available duloxetin e 30 mg capsule,d elayed release TAKE ONE CAPSULE BY MOUTH DAILY. TAKE 1 WEEK OF 30 MG DULOXETI NE THEN TAKE 60 MG DULOXETI NE DAILY active Not Available Not Available No t Available duloxetin e 60 mg capsule,d elayed release TAKE ONE CAPSULE BY MOUTH DAILY AFTER COMPLETI NG 1 WEEK OF 30 MG DULOXETI NE active Not Available Not Available No t Available solifenac in 5 mg tablet TAKE 1 TABLET BY MOUTH DAILY active Not Available Not Available No t Available Vesicare 10 mg tablet TAKE 1 TABLET BY MOUTH DAILY active Not Available Not Available No t Available Calcio Dano 500 mg tablet active Prescrib ed Elsewher e: Yes Loca tion: [facility] odify By: wmhampso n Encoun ter DateTime : 01/16/20 11 01:45:00 PM Not Available Not Available Not Available chlorhexi dine gluconate 0.12 % mouthwash active Not Available Not Available No t Available Anusol 11/01 completed Not Available Not Available Not Available magnesium active Not Available Not Aura ilable Not Available Vitamin C active Not Available Not Aura ilable Not Available levothyro xine active Not Available Not Available Not Available calcium 11/01 completed Not Available Not Available Not Available inositol active Not Available Not Avai lable Not Available Fish Oil 11/01 completed Not Available Not Available Not Available biotin active Not Available Not Availa ble Not Available Locoid Lipocream 11/01 completed Not Available Not Available Not Available Aquaphor 11/01 completed Not Available Not Available Not Available Acidophil us active Not Available Not Available Not Available Stool Softener active Not Available Not Available Not Available Xanax 11/01 completed Not Available Not Available Not Available Centrum Silver 10/20 completed Not Available Not Available Not Available CoQ10 active Not Available Not Availa ble Not Available Zyrtec 10/20 completed Not Available Not Available Not Available Metamucil active Not Available Not Aura ilable Not Available Miralax active Not Available Not Avail able Not Available Protonix 11/01 completed Not Available Not Available Not Available Nexium 11/01 completed Not Available Not Available Not Available Premarin 11/01 completed Not Available Not Available Not Available Vesicare active Not Available Not Avai lable Not Available Golytely 236 gram-22.7 4 gram-6.74 gram-5.86 gram oral solution 11/01 completed Not Available Not Available Not Available Refresh Contacts active Not Available Not Available Not Available dexlansop razole 60 mg capsule,b iphase delayed release TAKE 1 CAPSULE BY MOUTH DAILY active Not Available Not Available No t Available Fish Oil 360 mg-1,200 mg capsule active Prescrib ed Elsewher e: Yes Loca tion: [facility] odify By: jil samaniego DateTime : 01/16/20 11 01:45:00 PM Not Available Not Available Not Available Zyrtec 10 mg capsule 2017 active Prescrib ed Elsewher e: Yes Loca tion: [facility] odify By: luis finch DateTime : 07/16/19 18 11:30:00 AM Not Available Not Available Not Available cholin and Mg salicylat e(bulk) active Not Available Not Available Not Available Probiotic active Not Available Not Aura ilable Not Available trimethop rim (bulk) 11/01 completed Not Available Not Available Not Available desoximet asone 0.05 % topical ointment APPLY TOPICALL Y TO THE AFFECTED AREA DAILY NEEDED FOR RASH active Not Available Not Available No t Available Xarelto 10/20 completed Not Available Not Available Not Available Xarelto 20 mg tablet take 1 tablet by oral route every day with the evening meal 2014 active Prescrib ed Elsewher e: No Locat ion: [facility] odify By: luis solisuntludy DateTime : 07/06/19 15 11:30:00 AM Not Available Not Available Not Available Ocuvite Adult 50 Plus active Not Available Not Available Not Available Myrbetriq 25 mg tablet,ex tended release 11/01 completed Not Available Not Available Not Available Eliquis 5 mg tablet TAKE 1 TABLET BY MOUTH TWICE DAILY active Not Available Not Available No t Available Eliquis 2.5 mg tablet take 1 tablet by oral route 2 times every day 2016 active Prescrib ed Elsewher e: Yes Loca tion: [facility] odify By: luis finch DateTime : 07/16/19 17 11:30:00 AM Not Available Not Available Not Available Eliquis active Not Available Not Avail able Not Available Caltrate active Not Available Not Avai lable Not Available Jublia 10 % topical solution with applicato r active Not Available Not Available Not Available Flonase Allergy Relief 11/01 completed Not Available Not Available Not Available MegaRed Dunreith-3 Krill Oil 1,000 mg-230 mg-60 mg capsule 2017 active Prescrib ed Elsewher e: Yes Loca tion: [facility] odify By: luis finch DateTime : 07/16/19 18 11:30:00 AM Not Available Not Available Not Available MegaRed Dunreith-3 Krill Oil active Not Available Not Available No t Available Caltrate Gummy Bites 250 mg-10 mcg (400 unit) chewable tablet 2017 active Prescrib ed Elsewher e: Yes Loca tion: [facility] odify By: luis finch DateTime : 07/16/19 18 11:30:00 AM Not Available Not Available Not Available Vitals Date Recorded Body height Body mass index (BMI) Body weight Systolic blood pressure Diastolic blood pressure Provider Name and Address Organization Details Last Updated DateTime 11/09/2020 157.48 cm 27.3 kg/m2 47532.26 g 107 mm[Hg] 71 mm[Hg] Trudy Alexis [facility] 1 11:49:56 Date Recorded Body height Body mass index (BMI) Body weight Systolic blood pressure Diastolic blood pressure Provider Name and Address Organization Details Last Updated DateTime 11/02/2019 157.48 cm 31.1 kg/m2 30874.7 g 120 mm[Hg] 82 mm[Hg] Shasha Verde [facility] 0 10:35:32 Date Recorded Body height Body mass index (BMI) Body weight Systolic blood pressure Diastolic blood pressure Provider Name and Address Organization Details Last Updated DateTime 10/21/2023 157.48 cm 23.4 kg/m2 62458.82 g 145 mm[Hg] 81 mm[Hg] Noemi Croftsegundo [facility] 4 16:56:42 Date Recorded Body height Body mass index (BMI) Body weight Systolic blood pressure Diastolic blood pressure Provider Name and Address Organization Details Last Updated DateTime 05/18/2024 157.48 cm 23.4 kg/m2 85265.54 g 124 mm[Hg] 69 mm[Hg] Mari Patel [facility] 5 10:47:52 Social History Question Answer Notes LastModified by Organizat ion Details LastModified Time Tobacco Smoking Status Never Smoker Shasha garcia, [facility] 11/01/2019 17:00:11 What Is Your Level Of Alcohol Consumption? Occasional Information not available 11/09/2020 Are You Blind Or Do You Have Difficulty Seeing? No Information n ot available 11/09/2020 What Is Your Level Of Caffeine Consumption? Occasional Information not available 11/09/2020 In The 14 Days Before Symptom Onset, Have You Had Close Contact With A Laboratory-confirm ed COVID-19 While That Case Was Ill? No Information n ot available 10/21/2023 In The 14 Days Before Symptom Onset, Have You Had Close Contact With A Person Who Is Under Investigation For COVID-19 While That Person Was Ill? No Information not available 10/21/2023 Have You Been To An Area Known To Be High Risk For COVID-19? No Information not available 10/21/2023 Are You Deaf Or Do You Have Serious Difficulty Hearing? No Information not available 11/09/2020 What Type Of Diet Are You Following? REGULAR Information n ot available 11/09/2020 Do You Use Your Seat Belt Or Car Seat Routinely? Yes Information not available 11/09/2020 Do You Have Smoke And Carbon Monoxide Detectors In Your Home? Yes Information not available 11/09/2020 Do You Feel Stressed (tense, Restless, Nervous, Or Anxious, Or Unable To Sleep At Night)? [id number] Information not available 11/09/2020 Do You Use Any Illicit Or Recreational Drugs? No Information not available 11/09/2020 Do You Use Sunscreen Routinely? Yes Information not available 11/09/2020 Sex: Unknown Functional Status Question Answer Note LastModified by Organizat ion Details LastModified Time Are you able to walk? YESWOREST Information not available 11/09/2020 What is your exercise level? Occasional Information not available 11/09/2020 Mental Status None recorded. Family History Relationship Description Onset Age of this Age Resolved Age Notes LastModified by Organization Details LastModified Time Maternal Grandmother Malignant tumor of breast Not available 2020 11:52:57 Maternal Aunt Malignant tumor of breast Not available 2020 11:52:57 Father Congenital heart disease Not available 2020 11:53:10 Medical History Condition Response Anxiety Disorder Y Other Y Acid Reflux (GERD) Y Arthritis Y Deep Vein Thrombosis Y Thyroid Problems Y Osteoporosis Y Gynecological History Statement/Question Response Abnormal Pap N Date of Last Mammogram 01/29/2022 STIs/STDs N HPV Vaccine N 07/22/2018 Current Control Method Menopause If Post Menopausal, Age at Menopause 89 1 Date of Last Colonoscopy Most Recent Bone Density Sexually Active? N Menses Monthly N Date of Last Pap Smear Sexual Problems? N Obstetrics History GPAL:G 3 P 0 0 0 0 Past Encounters Encounter ID Performer Location Encounter Start Date Encounter Closed Date Diagnosis/Indication Diagnosis SNOMED-CT Code Diagnosis ICD10 Code Diagnosis Note [id number] Arabella Choudhury [facility] [address] [address] 11/02/2019 10:23:01 11/02/2019 14:02:54 Gynecologic examination 11918289 Z01.419 Take Calcium with Vitamin D 12-1500mg daily. Do monthly self breast exams. It is advised to get annual flu shot in the fall and she could obtain at [facility] or [facility] take care clinic. If you haven't received the Tdap vaccine in the last 10 years you should obtain one as well. Have mammogram yearly, bone density every 2-3 years and colonoscop y every 5-10 years depending on findings and history. Engage in daily exercise of low impact aerobic exercise 45-60 minutes 4-5 times weekly. Avoid tobacco and illicit drugs as well as using moderation with alcohol intake less than 1-2 8 oz beverages daily. This lifestyle behavior pattern will lead to less health conditions and longer life span. If BMI greater than 25 weight watchers or dietary consult advised. Questions have been answered. Patient appears to understand instructio ns, but if you have any further questions call or respond to this email Reports labs just completed by PCP/specia list. Pap/HPV d/c unless otherwise indicated per asccp Dexa 2019 Osteopenia . She is already on chinedu/vitami n D. Cystocele [id number] N81. 10 Very minimal prolpase of bladder. Not causing her sx's or issues will just occasional ly feel a slight bulge at opening when bearing down. Recommende d monitor for now unless causing her issues & keeping stools soft so not as much pressure needs to be initiated when having a BM. We can refer to urogyn prn. Hypothyroidism 26657644 E03.9 Will have PCP take over this Rx after this year. [id number] Arabella Choudhury , [facility] [address] [address] 11/09/2020 11:18:54 11/09/2020 14:51:33 Gynecologic examination 45169866 Z01.419 Take Calcium with Vitamin D 12-1500mg daily. Do monthly self breast exams. It is advised to get annual flu shot in the fall and she could obtain at [facility] or [facility] care clinic. If you haven't received the Tdap vaccine in the last 10 years you should obtain one as well. Have mammogram yearly, bone density every 2-3 years and colonoscop y every 5-10 years depending on findings and history. Engage in daily exercise of low impact aerobic exercise 45-60 minutes 4-5 times weekly. Avoid tobacco and illicit drugs as well as using moderation with alcohol intake less than 1-2 8 oz beverages daily. This lifestyle behavior pattern will lead to less health conditions and longer life span. If BMI greater than 25 weight watchers or dietary consult advised. Questions have been answered. Patient appears to understand instructio ns, but if you have any further questions call or respond to this email Reports labs just completed by PCP/specia list. Pap/HPV d/c unless otherwise indicated per asccp Dexa 2019 Osteopenia . She is already on chinedu/vitami n D. 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 - patient reports long hx of vulvar irritation - denies recurrent UTIs and vaginal bleeding- exam significan t for vulvar atrophy, no evidence of lichen or other abnormal vaginitis- recommend estrogen cream 3x per week for 1 month; if not improved rtc- patient has estrogen cream from previous rx; will call if she needs more [id number] [facility] Ruelas [place] [address],[place] [address] 05/18/2024 10:37:50 05/18/2024 11:41:38 Urinary symptoms 330956366 R39.9 Ua with 3+ leuks and 2+ nitritesur ine cx sentrx sent for UTI, r/b/a revieweden couraged clear fluids, avoid bladder irritantsr ecommended f/u with urologypre cautions reviewed Patient is to contact office or go to nearest ED/Urgent care if fever >/= 100.1, pain, excessive bleeding, unusual drainage or swelling in area of concern; or experienci ng worsening sx's or new onset of concerning sx's. Understand ing verbalized . All questions answered to patient satisfacti on. Time spent in visit is a total of 20 mins with at least 50% of visit consisting of counseling and review of plan of care. Health Concerns Section Related Observation LastModified by Organization Detai ls LastModified Time None Recorded Concern Status LastModified by Organization Details LastModified Time None Recorded Advance Directives Directive None Recorded Payers Encounter Date Sequence Insurance Name Policy Number Policy Keane Covered Member ID Keane Member ID Guarantor Name 11/02/2019 1 [facility] (MEDICARE REPLACEMENT/AD VANTAGE - PPO) [id number] Marilyn J [place] [id number] Marilyn J [place] 11/09/2020 1 [employer] (MEDICARE REPLACEMENT/AD VANTAGE - PPO) [id number] Marilyn J [place] [id number] Marilyn J [place] 11/19/2021 1 [facility] [employer] (MEDICARE REPLACEMENT/AD VANTAGE - PPO) [id number] Marilyn J [place] [id number] Marilyn J [place] 10/21/2023 1 [employer] (MEDICARE REPLACEMENT PPO) [id number] Marilyn J [place] [id number] Marilyn J [place] 05/18/2024 1 [employer] (MEDICARE REPLACEMENT PPO) [id number] Marilyn J [place] [id number] Marilyn J [place] Notes Date Note Type Note Provider Name and Address Organization Details Recorded Time 11/02/2019 text/html Annual GYNReport ed bypatient.History:So metimes feels a small bulge at vag opening. No pain, urinary issues, or VB. Just questioning if something is falling out. Menstrual cycle:Normal menses Urinary symptoms:No hematuria; No incontinence Vulva:No genital lesion Vagina:Normal vaginal discharge Breast:No breast pain; No breast lump; No nipple discharge Current Contraception:Postme nopause & Partial Hyst. Sexual complaints:No sexual complaints; No pain during intercourse; Normal libido Menopausal Symptoms:No menopausal symptoms; Normal vaginal lubrication Psychological symptoms:No depression; No anxiety; No PMDD Preventive measures:Encourage self breast examination; Encourage regular exercise; Encourage no tobacco use; Encourage regular mammograms starting age 40; Needs to schedule mammogram; Up to date on colonoscopy screening; Dexa 2018 +osteopenia Arabella Choudhury, [facility] [address], [place], [address], [facility] 11/02/2019 13:35:10 11/09/2020 text/html Annual Custodial Manager Post-MenopausalRepor yas bypatient.Menopausal Symptoms:no menopausal symptoms; normal vaginal lubrication Vaginal Bleeding:history of menopause having occurred; no history of post menopausal bleeding Urinary Symptoms:no hematuria; no incontinence; no nocturia; no urinary frequency Vulva:no genital lesion; no vulvar atrophy Vagina:normal vaginal discharge; no vaginal atrophy Breast:no breast lump; no nipple discharge; no breast pain Sexual Complaints:no sexual complaints Psychological Symptoms:no depression; no anxiety Preventive Measures:encourage regular mammograms starting age 40; encourage self breast examination; encourage regular exercise; encourage no tobacco use; needs to schedule mammogram; history of recent colonoscopy; needs to schedule bone density MONSE Ferrer- [address], [place], [address], [facility] 11/09/2020 14:45:10 10/21/2023 text/html Patient presents for vaginal irritation. Patient reports improvement in the irritation after using vaginal estrogen and surgical lubricant. Was previously prescribed metrogel after she reported a fishy odor. Denies exposure to STDs. No hx of recurrent UTIs. LEYLA HERRON MD [address], [place], [address], [facility] 10/21/2023 17:42:31 05/18/2024 text/html 83yopresents wit h c/o urinary symptomsurinary urgency/frequency/dy suriasymptoms started last nightsees urology for frequent UTI's/IC/hematuria/h /o kidney stones - last seen 2 weeks agousing vaginal estradiol cream twice per week neg n/v/fneg flu-like symptomsneg flank pains MONSE Ruelas [address], [place], [address], [facility] 05/18/2024 11:37:39 OBGyn Episode Ob Episode Information Episode Created Date Number of Fetuses Patient Bloodtype Patient rh Status Prepregnancy Weight lbs Domestic Partner Domestic Partner Phone Father Name Microfiche Camera Operator Status 11/10/19 21 1 CLOSED Fetus Data First Name Last Name Admitted to NICU Weight (g) Sex Living Outcome Pediatric Complications Fetus ID Race Codes Race Delivery Type F [id number] Vaginal Delivery Izaiah Calculation Initial Izaiah Date Initial Exam Date Initial Exam Provider Initial Ultrasound Date Last Menstrual Period Date Ultra Sound Weeks Gestation 0 Eighteen To Twenty Week Izaiah Update Ultra Sound Date Fundal Height At Umbil Quickening Date Ultra Sound Latest Weeks Gestation Final Izaiah Confirmed By Final Izaiah Confirmed Date Final Izaiah Date Ultra Sound Latest Days Gestation 0 0 Menstrual History Last Menstrual Date Menses Monthly On Bcp Conception Prior Menses Frequency Hcg Plus Date Menarche Onset Age Delivery Information Delivery Date Delivery Type Labor Anesthesia Weeks Gestation Incision Type Labor Labor Length Hrs Delivered By Post Complications Tubal Sterilization Discharge Date Comments 2 Discharge Information Feeding Method Contraceptive Method Maternal HG B and HCT Levels Ob Episode Information Episode Created Date Number of Fetuses Patient Bloodtype Patient rh Status Prepregnancy Weight lbs Domestic Partner Domestic Partner Phone Father Name Microfiche Camera Operator Status 11/10/19 21 1 CLOSED Fetus Data First Name Last Name Admitted to NICU Weight (g) Sex Living Outcome Pediatric Complications Fetus ID Race Codes Race Delivery Type M [id number] Vaginal Delivery Izaiah Calculation Initial Izaiah Date Initial Exam Date Initial Exam Provider Initial Ultrasound Date Last Menstrual Period Date Ultra Sound Weeks Gestation 0 Eighteen To Twenty Week Izaiah Update Ultra Sound Date Fundal Height At Umbil Quickening Date Ultra Sound Latest Weeks Gestation Final Izaiah Confirmed By Final Izaiah Confirmed Date Final Izaiah Date Ultra Sound Latest Days Gestation 0 0 Menstrual History Last Menstrual Date Menses Monthly On Bcp Conception Prior Menses Frequency Hcg Plus Date Menarche Onset Age Delivery Information Delivery Date Delivery Type Labor Anesthesia Weeks Gestation Incision Type Labor Labor Length Hrs Delivered By Post Complications Tubal Sterilization Discharge Date Comments 6 Discharge Information Feeding Method Contraceptive Method Maternal HG B and HCT Levels Ob Episode Information Episode Created Date Number of Fetuses Patient Bloodtype Patient rh Status Prepregnancy Weight lbs Domestic Partner Domestic Partner Phone Father Name Microfiche Camera Operator Status 11/10/19 21 1 CLOSED Fetus Data First Name Last Name Admitted to NICU Weight (g) Sex Living Outcome Pediatric Complications Fetus ID Race Codes Race Delivery Type M [id number] Vaginal Delivery Izaiah Calculation Initial Izaiah Date Initial Exam Date Initial Exam Provider Initial Ultrasound Date Last Menstrual Period Date Ultra Sound Weeks Gestation 0 Eighteen To Twenty Week Izaiah Update Ultra Sound Date Fundal Height At Umbil Quickening Date Ultra Sound Latest Weeks Gestation Final Izaiah Confirmed By Final Izaiah Confirmed Date Final Izaiah Date Ultra Sound Latest Days Gestation 0 0 Menstrual History Last Menstrual Date Menses Monthly On Bcp Conception Prior Menses Frequency Hcg Plus Date Menarche Onset Age Delivery Information Delivery Date Delivery Type Labor Anesthesia Weeks Gestation Incision Type Labor Labor Length Hrs Delivered By Post Complications Tubal Sterilization Discharge Date Comments 0 Discharge Information Feeding Method Contraceptive Method Maternal HG B and HCT Levels
== END 2024-06-18 12:20 | disposition home or self-care (01) ==
PROVIDERS: PCP Family Medicine
DX: M47.816 Spondylosis without myelopathy or radiculopathy, lumbar region (principal); M41.9 Scoliosis, unspecified
CPT/HCPCS: 72100

== ENCOUNTER 2024-08-24 12:33 | Outpatient (CLI) | payer MEDICARE, SELFPAY ==
--- NOTE | ~2024-08-24 | MM_ITS ---
EXAMINATION: MM screening arturo BI w jonas HISTORY: Screening mammogram. TECHNIQUE: Craniocaudal and mediolateral oblique 3-D tomosynthesis images were obtained and synthetic 2-D images were generated. CAD analysis was submitted and interpreted. COMPARISON: 05/22/2023 through 08/14/2018 BREAST PARENCHYMAL COMPOSITION: There are scattered areas of fibroglandular density. FINDINGS: There is no evidence of suspicious mass, calcification, or architectural distortion to sug gest malignancy. There has been no significant interval change. IMPRESSION: 1. No mammographic evidence of malignancy in either breast. 2. Recommend routine screening mammography in one year. BI-RADS Category 1: Negative Reviewed, dictated and finalized at location B.
== END 2024-08-24 12:34 | disposition home or self-care (01) ==
LOC: MICIMG 12:33
PROVIDERS: PCP Family Medicine; Visit Provider Family Medicine
DX: Z12.31 Encounter for screening mammogram for malignant neoplasm of breast (principal)
CPT/HCPCS: 77063; 77067

== ENCOUNTER 2024-11-23 11:33 | Outpatient (CLI) | payer MEDICARE, SELFPAY ==
--- NOTE | ~2024-11-23 | XR_ITS ---
XR abdomen/kub 1V 11/23/2024 11:57 INDICATION: Ureteral stone TECHNIQUE: KUB COMPARISON: 10/16/2023 FINDINGS: Bowel gas pattern is normal. There is no evidence of free air, mass, organomegaly, ascites or obstruction. There are calcific densities overlying the right mid abdomen, suspicious for renal stones. The bones appear intact. There is moderate lumbar spondylosis with dextroscoliosis. IMPRESSION: 1: Possible right nephrolithiasis. Reviewed, dictated and finalized at location O.
--- OUTSIDE RECORDS SUMMARY | 2024-11-23 11:57 | XMS_ITS | Clinical Summary ---
Author Organization [facility] Address [address] [place] [address] Care Team Providers Care Superintendent Transportation Name Role Phone Louie Antonio MD Primary Care Provider [phone] Allergies Active Allergy Reactions Criticality Noted Date [...] Comments Blood Pressure 154/76 05/12/2021 12:42 PM VISION THERAPIST Pulse 69 05/12/2021 12:42 PM VISION THERAPIST Temperature 36.3 C (97.4 F) 05/12/2021 12:42 PM VISION THERAPIST Respiratory Rate 20 05/12/2021 12:42 PM VISION THERAPIST Oxygen Saturation 99% 05/12/2021 12:42 PM VISION THERAPIST Inhaled Oxygen Concentration - - Weight 63.5 kg (140 lb) 05/12/2021 12:42 PM VISION THERAPIST Height 165.1 cm (5' 5) 05/12/2021 12:42 PM VISION THERAPIST Body Mass Index 23.3 05/12/2021 12:42 PM VISION THERAPIST Plan of Treatment Health Maintenance Due Date Last Done Comments DTaP, Tdap and Td Vaccines ( 1 - Tdap) 10/26/1959 Annual Medicare Wellness Visit 2005 Dexa Scan (General) 2005 Zoster Vaccines (2 of 3) 05/30/2015 04/04/2015 RSV Immunization or 60+ Years (1 - 1-dose 75+ series) 10/26/2015 Pneumococcal Vaccine: 50+ Years (2 of 2 - PPSV23) 03/28/2021 03/28/2020 COVID-19 Vaccine (3 - 2024-2 6 season) 2024 03/25/2021, 06/29/2020 Meningococcal B Vaccine Aged Out No l onger eligible based on patient's age to complete this topic Meningococcal Vaccine Aged Out No kellie lori eligible based on patient's age to complete this topic RSV Immunizations Under 20 Months Aged Out No longer eligible b ased on patient's age to complete this topic Insurance [facility] MEDICARE Care Teams Superintendent Transportation Relationship Specialty Start Date End Date Louie Antonio MD [address] [place] [id number] PCP - General FAMILY PRACTICE 05/12/21
--- OUTSIDE RECORDS SUMMARY | 2024-11-23 11:57 | XMS_ITS | Clinical Summary ---
Author Organization [facility] Address [address] [place] [id number] Care Team Providers Care Usability Strategist Name Role Phone Louie Antonio MD Primary Care Provider [phone] Allergies Active Allergy Reactions Criticality Noted Date [...] mouth nightly as needed for anxiety Active [id number]-[id number] wj-[id number] 1,000-230-60 mg capsule Take by mouth daily [...] Take 1 capsule by mouth daily Active Active Problems No known active problems Surgical History Surgery Date Site/Laterality Comments HERNIA REPAIR PARTIAL HYSTERECTOMY BACK SURGERY BLADDER REPAIR Medical History Medical History Date Comments DVT (deep venous thrombosis) Family History Relation Name Status Comments Brother [...] of Binge Drinking Not on file 01/23 Comments Unknown Sex and Gender Information Value Date Recorded Sex Assigned at Not on file 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 Gender Identity Not on file Sexual Orientation Not on file Obstetrics History Last Filed Vital Signs Vital Sign Reading Time Taken Comments Blood Pressure 136/58 07/07/2024 12:51 PM CDT Pulse 87 07/07/2024 12:51 PM CDT Temperature 36.7 C (98 F) 02/16/2020 12:54 PM ABRASIVE WORKER Respiratory Rate 15 02/14/2020 10:13 AM ABRASIVE WORKER Oxygen Saturation 97% 07/07/2024 12:51 PM CDT Inhaled Oxygen Concentration - - Weight 58.1 kg (128 lb) 07/07/2024 12:51 PM CDT Height 157.5 cm (5' 2) 07/07/2024 12:51 PM CDT Body Mass Index 23.41 07/07/2024 12:51 PM CDT Plan of Treatment Health Maintenance Due Date Last Done Comments Depression Screening 1940 Osteoporosis Screening-Bone Density Scan 1940 DTaP/Tdap/Td Vaccine (1 - Tdap) 10/26/1951 Hepatitis B Screening 1958 Well Visit 65+ 2005 Pneumococcal vaccine 65+ (2 of 2 - PCV20 or PCV21) 11/23/2015 11/22/2014 Zoster Vaccine (2 of 3) 12/05/2015 10/10/2015 Fall Risk Assessment 02/13/2021 02/14/2020 Influenza Vaccine (#1) 2024 , 02/08/2019, 04/26/2017, Additional history exists [place] [address] [address] [place] [address] MEDICARE [facility] MEDICARE Care Teams Usability Strategist Relationship Specialty Start Date End Date Louie Antonio MD [address] [place] [id number] PCP - General Family Medicine 07/07/24
--- OUTSIDE RECORDS SUMMARY | 2024-11-23 11:57 | XMS_ITS | Clinical Summary ---
Author Organization [facility] Address [address] [place] [address] Care Team Providers Care Sales Service Technician Name Role Phone Luoie Antonio MD Primary Care Provider [phone] Source Comments [facility],non-owned Affiliates and Associated Physician Practices is amultiple site organization consisting of ambulatory clinics and hospital sitesin [place], [place], [place] and [place]. This disclosure is being madepursuant to the Care Everywhere program and may not contain all information available regarding this patient. Last updated 17.[facility] Allergies Active Allergy Reactions Criticality Noted Date Comments Penicillins Rash Medium 06/25/2011 Sulfa Drugs Rash Medium 06/25/2011 Medications * Be aware that medications may not be up to date on this document. Alwaysverify current medications with the patient. ALPRAZolam (XANAX) 0.25 MG tablet TAKE 1 TABLET BY MOUTH TWICE DAILY NEEDED FOR STRESS 2 Active Lactobacillus (ACIDOPHILUS) 100 MG Take 1 (one) capsule by mouth once daily Active ELIQUIS 5 MG tablet Take 1 (one) tablet by mouth once daily 2 Active Biotin 1000 MCG Take 1 mg [...] 1 (one) capsule by mouth once daily 2 Active fexofenadine-ps eudoephedrine ER 12hr (LAUREN-D) 60-120 MG tablet Take 1 tablet by mouth 2 times daily Active inositol 500 MG tablet Take 1 (one) tablet by mouth once daily Active levothyroxine (SYNTHROID) 50 MCG tablet Take 1 (one) tablet by mouth once daily 2 Active Magnesium Oxide 250 MG Take 250 mg by mouth once daily Active Multiple Vitamins-Minera ls (CENTRUM SILVER 50+WOMEN) TABS Take 1 tablet by mouth once daily Active Krill Oil 1000 MG Take 1 tablet by mouth once daily Active desoximetasone (Topicort-Lp) 0.05 % ointment APPLY TOPICALLY TO GROIN RASH DAILY NEEDED 2 Active clobetasol (Temovate) 0.05 % solution APPLY TO SCALP AND EARS TWICE DAILY NEEDED 2 Active metroNIDAZOLE (Flagyl) 500 MG tablet 3 Active Saccharomyces boulardii (FLORASTOR PO) Activ e estradiol (Estrace) 0.1 MG/GM vaginal cream Insert 1 g into the vagina every other day as needed 42.5 g 3 3 Active VESIcare 10 MG tablet Take 1 (one) tablet by mouth once daily 60 tablet 11 3 Active Active Problems Problem Noted Date Diagnosed [...] drink = 0.6 oz pur e alcohol) Comments No Sex and Gender Information Value Date Recorded Sex Assigned at Not on file 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
--- OUTSIDE RECORDS SUMMARY | 2024-11-23 11:57 | XMS_ITS | Clinical Summary ---
Author Organization [facility] Address [address], [place] [address] Phone Care Team Providers Care Retort Fireman Name Role Phone Louie Antonio MD Primary Care Provider [phone] Allergies Active Allergy Reactions Criticality Noted Date Comments Penicillins Rash,Unknown Low 06/25/2011 Sulfa Antibiotics 06/25/2011 Medications VESIcare 10 MG tablet Take 10 mg by mouth 1 (one) time each day 2 Active spironolactone (ALDACTONE) 25 MG tablet 2 Active levothyroxine (SYNTHROID) 50 MCG tablet Take 50 mcg by mouth 1 (one) time each day 2 Active Lactobacillus Acid-Pectin (Acidophilus/Pe ctin) capsule Take by mouth daily Active Ca Phosphate-Simran calciferol (Caltrate Gummy Bites) 250-400 MG-UNIT chewable tablet Caltrate Gummy Bites 250 mg-10 mcg (400 unit) chewable tablet 8 Active Lactobacillus (Acidophilus) 0.5 MG tablet Acidophilus capsule 8 Active Multiple Vitamins-Minera ls (Centrum Silver 50+Women) tablet Centrum Silver Activ e Coenzyme Q10 (CoQ10) 100 MG capsule CoQ10 Active Biotin 1 MG capsule biotin Active Multiple Vitamins-Minera ls (OCUVITE ADULT 50+ PO) Ocuvite Adult 50 Plus Active CHOLINE BITARTRATE ER PO Take 648 mg by mouth Active Fish Oil-Krill Oil (MEGARED ADVANCED 4 IN 1 PO) MegaRed [place]-3 Krill Oil 1,000 mg-230 mg-60 mg capsule 8 Active Magnesium 400 MG capsule magnesium Active Inositol 324 MG tablet inositol Active ALPRAZolam (XANAX) 0.25 MG tablet TAKE 1 TABLET BY MOUTH TWICE DAILY NEEDED FOR STRESS 2 Active Eliquis 5 MG tablet Take 5 mg by mouth 2 (two) times a day 2 Active Cetirizine HCl (ZyrTEC ALLERGY) 10 MG capsule Zyrtec 10 mg capsule 8 Active esomeprazole (NexIUM) [address] capsule Take by mouth 1 (one) time each day 2 Active Krill Oil 1000 MG capsule Take 1 tablet by mouth daily Active b complex vitamins capsule Take 1 capsule by mouth 1 (one) time each day Active Active Problems Problem Noted Date Diagnosed Date 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 Pyuria 06/07/2021 Immunizations Immunization Administration Dates Next Due Influenza TIV (IM) 01/05/2021 Pneumococcal Conjugate 11/22/2014 Social History Tobacco Use Types Packs/Day Years Used Date Smoking Tobacco: Never Smokeless Tobacco: Never Alcohol Use Standard Drinks/Week Comments Not Currently 0 (1 standard drink = 0.6 oz pur e alcohol) Comments Unknown Sex and Gender Information Value Date Recorded Sex Assigned at Not on file Legal Sex Female 10:40 AM [facility] Gender Identity Not on file Sexual Orientation [...] 1:36 PM CDT Height 157.5 cm (5' 2) 12/10/2021 1:36 PM CDT Body Mass Index 24.33 12/10/2021 1:36 PM CDT Plan of Treatment Health Maintenance Due Date Last Done Comments Pneumococcal PPSV23/PCV13 65 + Years / High and Highest Risk (1 of 5 - PCV) 10/26/1959 Influenza Vaccine (#1) 2024 01/05/2021 Insurance [employer] [place] [address] Care Teams Retort Fireman Relationship Specialty Start Date End Date Louie Antonio MD [address] [place] [id number] PCP - General Internal Medicine 05/01/21
== END 2024-11-23 11:34 | disposition home or self-care (01) ==
PROVIDERS: PCP Family Medicine; Visit Provider Internal Medicine Nephrology
DX: N20.0 Calculus of kidney (principal)
CPT/HCPCS: 74018